=== PATIENT | male | born 2000 | race African-American/Black ===

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

== ENCOUNTER 2018-01-27 09:17 | Inpatient (IN) | payer OTHER ==
[~2018-01-27] VITALS: Ht 175.3 cm; Wt 107.5 kg
[2018-01-27] VITALS (12 sets, daily range): BP systolic 124–156; BP diastolic 70–93
[~2018-01-27 09:17] MED LIST: CULTURELLE1 EACH ORAL; DOCUSATE SODIU100 M2 ORAL; HYDROCODON-ACE1 EA13 ORAL; KEFLEX500 MG ORAL; SCOPOLAMINE1 EACH TD; VIMPAT200 MG PO; VITAMIN D1000 UNI1 ORAL
[2018-01-27] MEDS ORDERED: Sterile Water Irrig 1000ml IRRIG ONE (10:18)
[2018-01-27] MEDS ORDERED: Ketorolac 30mg Inj ONE ×2 (10:18→11:58)
[2018-01-27] MEDS ORDERED: LR 1000ml ONE (10:18)
[2018-01-27] MEDS ORDERED: NS Irrig 1000ml ONE (10:18)
[2018-01-27] MEDS ORDERED: EPINEPHrine 1mg/1ml Amp ONE (10:36)
[2018-01-27] MEDS ORDERED: NeoSporin Gu Irrig 1ml Amp IRRIG ONE ×2 (10:37→10:38)
[2018-01-27] MEDS ORDERED: Bacitracin 50000 Units Vial ONE ×2 (10:37→10:38)
[2018-01-27] MEDS ORDERED: Lidocaine 1% 10mg/ml/Epi 0.005mg/ml 30ml vial INJ ONE (10:37)
[2018-01-27] MEDS ORDERED: fentaNYL 100 mcg/2 mL IV ONE (10:40)
[2018-01-27] MEDS ORDERED: Midazolam 2mg/2ml Inj ONE (10:40)
[2018-01-27] MEDS ORDERED: Lidocaine 1% MPF 10mg/ml 5ml ONE (10:41)
[2018-01-27] MEDS ORDERED: Propofol 200mg/20ml IV ONE (10:41)
[2018-01-27] MEDS ORDERED: PCA Education Pamphlet MISC ONE ×2 (10:45→13:30)
[2018-01-27] MEDS ORDERED: Rate Change PCA 1 Each MISC PRN ×2 (10:45→13:30)
[2018-01-27] MEDS ORDERED: Zolpidem 5mg tab ORAL PRN ×2 (10:45→13:15)
[2018-01-27] MEDS ORDERED: PCA HYDROmorphone 1mg/ml 30 ML IV PRN (10:45)
--- NOTE | 2018-01-27 10:45 | Pre-Procedure Note/Attestation ---
Pre-Procedure Note/Attestation Complete Prior to Procedure Planned Procedure: right Procedure Narrative: Right axillary tissue debridement and flap elevation Attestation I attest that I discussed the nature of the procedure; its benefits; risks and complications; and alternatives (and the risks and benefits of such alternatives ), prior to the procedure, with the patient (or the patient's legal medical representative). I attest that, if there was a reasonable possibility of needing a blood transfusion, the patient (or the patient's legal medical representative) was given the [facility] standardized written summary, pursuant to the Eddie Howard Blood Safety Act ([place] Health and Safety Code # 1645, as amended). I attest that I re-evaluated the patient just prior to the surgery and that there has been no change in the patient's H&P, except as documented below: Сергей Riley MD Jan 27, 2018 10:45
[2018-01-27] MEDS ORDERED: Succinylcholine 20mg/ml 10ml vial ONE (10:59)
[2018-01-27] MEDS ORDERED: Zemuron 50mg/5ml Inj IV ONE (10:59)
[2018-01-27] MEDS ORDERED: LR 1000ml 1,000 ML IVLG SCH (11:55)
--- NOTE | 2018-01-27 11:55 | Anethesia Preoperative Eval ---
Anesthesia Pre-op PMH/ROS General Date of Evaluation: Jan 27, 2018 Time of Evaluation: 10:50 Anesthesiologist: Zohaib ASA Score: ASA 2 Mallampati Score Class I : Soft palate, uvula, fauces, pillars visible Class II: Soft palate, uvula, fauces visible Class III: Soft palate, base of uvula visible Class IV: Only hard plate visible Mallampati Classification: Class II Surgeon: Rosemary Diagnosis: Recurrent hydradenitis Surgical Procedure: Excision of R axillary hydradenitis Anesthesia History: none Family History: no anesthesia problems Allergies: Coded Allergies: CARBINOXAMINE (Verified Allergy, Severe, 02/06/17) TACHYCARDIA PSEUDOEPHEDRINE (Verified Allergy, Severe, 02/06/17) TACHYCARDIA Shrimp (Verified Allergy, Mild, 02/06/17) SKIN RASH Medications: see eMAR Patient NPO?: Yes NPO Date: Jan 26, 2018 NPO Time: 2100 Past Medical History Cardiovascular: Denies: HTN, CAD, [place], valve dz, arrhythmia, other Pulmonary: Denies: asthma, COPD, ROWAN, other Gastrointestinal/Genitourinary: Reports: GERD; Denies: CRI, ESRD, other Neurologic/Psychiatric: Reports: other - h/o sizers; Denies: dementia, CVA, depression/anxiety, TIA Endocrine: Denies: DM, hypothyroidism, steroids, other HEENT: Denies: cataract (L), cataract (R), glaucoma, KLAMATH (L), KLAMATH (R), other Hematology/Immune: Denies: anemia, DVT, bleeding disorder, other Musculoskeletal/Integumentary: Reports: other - Recurrent HS; Denies: OA, RA, DJD, DDD, edema Other: obesity PMH Narrative: as above PSxH Narrative: Excision of L axillary HS Anesthesia Pre-op Phys. Exam Physician Exam Last Vital Signs Date Time Temp Pulse Resp B/P (MAP) Pulse Ox O2 Delivery O2 Flow Rate FiO2 01/27/18 09:51 Room Air 01/27/18 09:50 98.7 71 18 146/72 (96) 100 Constitutional: NAD Neurologic: CN 2-12 intact Cardiovascular: RRR, no M/R/G Respiratory: CTA Gastrointestinal: S/NT/ND Airway Exam Mallampati Score: Class II MO: full Neck: flexible ROM: full Teeth: intact Dentures: no upper, no lower Anesthesia Pre-op A/P Labs see chart Risk Assessment & Plan Assessment: ASA 2 Plan: GA with ETT PONV prevention Status Change Before Surgery: No Pre-Antibiotics Drug: Ancef 2 gr. Given Within 1 Hr of Incision: Yes Time Given: 11:20 Eligio Penny MD Jan 27, 2018 11:55
[2018-01-27] MEDS ORDERED: Glycopyrrolate 0.2mg/ml 1ml Vial ONE (11:58)
[2018-01-27] MEDS ORDERED: Sodium Chloride 10ml vial INJ ONE (11:58)
[2018-01-27] MEDS ORDERED: Morphine Sulfate 10mg/ml Inj ONE (11:59)
[2018-01-27] MEDS ORDERED: fentaNYL 100 mcg/2 mL IV PRN (12:00)
[2018-01-27] MEDS ORDERED: Meperidine 50mg/ml Inj(FOR RIGORS ONLY) IV PRN (12:00)
[2018-01-27] MEDS ORDERED: DiphenhydrAMINE 50mg/ml Inj IVP PRN (12:00)
[2018-01-27] MEDS ORDERED: Ketorolac 30mg Inj IV PRN (12:00)
[2018-01-27] MEDS ORDERED: Midazolam 2mg/2ml Inj IVP PRN (12:00)
[2018-01-27] MEDS ORDERED: Metoclopramide 10mg/2ml Inj IVP PRN (12:00)
--- NOTE | 2018-01-27 12:37 | Operative Note - PDOC ---
Operative Note Operative Note Pre-op Diagnosis: Right axillary HS Post-op Diagnosis: same as pre-op Surgeon: Rosemary Seo Expert: Daniel Anesthesia: general Specimen: yes Complications: none Condition: stable Estimated Blood Loss: minimal Drains: none Implant(s) used?: No Сергей Riley MD Jan 27, 2018 12:37
--- NOTE | 2018-01-27 12:58 | Immediate Post-Op Evaluation ---
Immediate Post-Op Evalulation Immediate Post-Op Evalulation Procedure: Excision of R axillary hydradenitis Date of Evaluation: Jan 27, 2018 Time of Evaluation: 12:57 IV Fluids: 1100 Blood Products: none Estimated Blood Loss: 50 Urinary Output: none Blood Pressure Systolic: 146 Blood Pressure Diastolic: 72 Pulse Rate: 74 Respiratory Rate: 20 O2 Sat by Pulse Oximetry: 99 Temperature (Fahrenheit): 97.8 Pain Score (1-10): 1 Nausea: No Vomiting: No Complications none Patient Status: reacts, patent, extubated, none Hydration Status: adequate Eligio Penny MD Jan 27, 2018 12:58
[2018-01-27] MEDS ORDERED: Morphine Sulfate 2mg/ml Inj IVP PRN ×2 (13:15→13:30)
[2018-01-27] MEDS ORDERED: HYDROcodone/Acetamin 10/325 tab ORAL PRN (13:15)
[2018-01-27] MEDS ORDERED: Norco 5mg/325mg tab ORAL PRN (13:15)
[2018-01-27] MEDS ORDERED: PCA Morphine 1mg/ml 30 ML IV PRN (13:30)
[2018-01-27] MEDS ORDERED: Naloxone 0.4mg/ml Inj IVP PRN (13:30)
[2018-01-27] MEDS ORDERED: Morphine Sulfate 4mg/ml Inj (IV/IM USE ONLY) IV PRN (13:30)
--- NOTE | 2018-01-27 13:48 | History and Physical ---
History of Present Illness General Date patient seen: Jan 27, 2018 Time patient seen: 13:00 Reason for Hospitalization: abscess / hidradenitis suppurativa Present Illness HPI 17 yo M PMH of hidradenitis suppurativa, seizure disorder on vimpat, presented for pain, swelling and redness in the right axilla. Patient had similar prior episode on the left axillary region and had surgery done. Patient states his pain has worsened over time along with the swelling and erythema and occasionally there is drainage underneath the right axilla. Patient was evaluated for abscess and hidradenitis suppurativa and taken to the OR for debridement by Dr. Riley. Patient was evaluated post-operatively in good condition. Patient is under the influence of anesthesia however he is able to very that he has allergy to shrimp and takes Vimpat 300 mg PO BID for history of seizures. He admits to non radiating, sharp 10/10 pain under the right axilla where surgery was done. Otherwise patient denies nausea, vomiting, shortness of breath , fevers, chills or abd pain. ALL: shrimp PMH: seizure h/o, hidradenitis suppurativa PSH: debridement left axillary, radical excision and flap reconstruction FmHx: DM- father Soc Hx: denies tobacco, etoh and drug use Allergies: Coded Allergies: CARBINOXAMINE (Verified Allergy, Severe, 02/06/17) TACHYCARDIA PSEUDOEPHEDRINE (Verified Allergy, Severe, 02/06/17) TACHYCARDIA Shrimp (Verified Allergy, Mild, 02/06/17) SKIN RASH Medication History Scheduled Cholecalciferol (Vitamin D3)* (Vitamin D*), 4,000 UNITS ORAL DAILY, (Reported) Lacosamide (Vimpat), 300 MG PO BID, (Reported) Discontinued Medications Cephalexin* (Keflex*), 500 MG ORAL Q6H Discontinued Reason: Pt stopped taking med Docusate Sodium (Docusate Sodium), 100 MG ORAL TWICE A DAY Discontinued Reason: Pt stopped taking med Hydrocodone Bit/Acetaminophen 10-325* (Hydrocodon-Acetaminophn 10-325*), 1 EA ORAL Q4H PRN Discontinued Reason: Pt stopped taking med Lactobacillus Rhamnosus Gg* (Culturelle*), 1 TAB ORAL TWICE A DAY Discontinued Reason: Pt stopped taking med Scopolamine (Scopolamine), 1 EACH TD Q72H Discontinued Reason: Pt stopped taking med Patient History Healthcare decision maker DONAVAN BLANCO AND B[employer] GABRIEL - MOTHER &FATHER Resuscitation status Full Code Advanced Directive on File Family History Family History: FH: colon cancer Review of Systems All Other Systems: negative except mentioned in HPI ROS Narrative aside from HPI all other ROS are negative including more than 12 systems Physical Exam General Appearance: WD/WN, no apparent distress, alert, lethargic, other Lines, tubes and drains: peripheral HEENT: normocephalic, atraumatic, anicteric, mucous membranes moist, PERRL Neck: non-tender, normal alignment, supple, normal inspection, abnormal alignment Respiratory/Chest: normal breath sounds, no respiratory distress, no accessory muscle use, respiratory distress, other - left axillay surgical scar well healed , right axilla is badanged post op with no exudates or active drainage, tender to minimal palpation around surrounding tissues Breasts: no masses Cardiovascular/Chest: normal peripheral pulses, normal rate, regular rhythm, regularly irregular, no gallop/murmur, no JVD Abdomen: normal bowel sounds, non tender, soft, no organomegaly, no mass, abnormal bowel sounds Extremities: normal range of motion, non-tender, normal inspection, no calf tenderness, normal capillary refill, non-pitting, other - scd's in place Skin Exam: normal pigmentation, warm/dry 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 II-XII grossly normal, no motor/sensory deficits, oriented x 3 , responsive, normal mood/affect Last 24 Hour Vital Signs Date Time Temp Pulse Resp B/P (MAP) Pulse Ox O2 Delivery O2 Flow Rate FiO2 01/27/18 13:19 69 17 155/89 100 Nasal Cannula 3 01/27/18 13:10 66 15 134/85 100 Nasal Cannula 3 01/27/18 12:58 74 20 99 01/27/18 12:57 81 21 145/83 100 Simple Mask 6 01/27/18 12:52 74 24 132/79 100 Simple Mask 6 01/27/18 12:47 97.4 82 20 151/83 100 Simple Mask 6 01/27/18 09:51 Room Air 01/27/18 09:50 98.7 71 18 146/72 (96) 100 Height (Feet): 5 Height (Inches): 10.00 Weight (Pounds): 238 Medications Current Medications Medications (Trade) Dose Ordered Sig/Brandon Route PRN Reason Start Time Stop Time Status Last Admin Dose Admin Acetaminophen (Tylenol) 650 mg Q4H PRN ORAL FEVER 01/27/18 10:45 02/26/18 10:44 UNV Acetaminophen (Tylenol) 650 mg Q4H PRN ORAL Mild Pain (Pain Scale 1-3) 01/27/18 13:15 02/26/18 13:14 UNV Acetaminophen (Tylenol) 650 mg Q4H PRN ORAL fever 01/27/18 13:15 02/26/18 13:14 UNV Acetaminophen/ Hydrocodone Bitart ([place] 10/325) 1 tab Q4H PRN ORAL For Pain 6-7 01/27/18 13:15 02/03/18 13:14 UNV Acetaminophen/ Hydrocodone Bitart ([place] 5/325) 1 tab Q6H PRN ORAL Pain 4-5 01/27/18 13:15 02/03/18 13:14 UNV Cefazolin Sodium (Ancef) 1 gm Q8HR IM 01/27/18 14:00 02/03/18 13:59 UNV Dextrose (Dextrose 50%) 25 ml Q30M PRN IV Hypoglycemia 01/27/18 13:15 02/26/18 13:14 UNV Dextrose (Dextrose 50%) 50 ml Q30M PRN IV Hypoglycemia 01/27/18 13:15 02/26/18 13:14 UNV Diphenhydramine HCl (Benadryl) 25 mg Q15M PRN IVP Itching 01/27/18 12:00 UNV Docusate Sodium (Colace) 200 mg TWICE A DAY ORAL 01/27/18 18:00 02/26/18 17:59 UNV Fentanyl Citrate (Sublimaze 100 mcg/2 mL) 50 mcg Q10M PRN IV Moderate Pain (Pain Scale 4-6) 01/27/18 12:00 01/27/18 18:00 01/27/18 13:18 Heparin Sodium (Porcine) (Heparin 5000 units/ml) 5,000 units EVERY 12 HOURS SUBQ 01/27/18 21:00 02/26/18 20:59 UNV Heparin Sodium (Porcine) (Heparin 5000 units/ml) 5,000 units EVERY 8 HOURS SUBQ 01/27/18 14:00 02/26/18 13:59 UNV Hydromorphone HCl 30 ml @ 0 mls/hr Q24H PRN IV For Pain 01/27/18 10:45 01/29/18 10:44 01/27/18 13:21 Ketorolac Tromethamine (Toradol 30mg) 30 mg Q1H PRN IV Severe Breakthru Pain (>7) 01/27/18 12:00 01/27/18 18:00 Lactated Ringer's 1,000 ml @ 10 mls/hr Q24H IVLG 01/27/18 11:55 01/27/18 13:54 Meperidine HCl (Demerol) 25 mg Q15M PRN IV chills 01/27/18 12:00 01/27/18 18:00 Metoclopramide HCl (Reglan) 10 mg Q1H PRN IVP Nausea & Vomiting 01/27/18 12:00 01/27/18 18:00 Midazolam HCl (Versed 2mg/2ml vial) 1 mg Q15M PRN IVP For Anxiety 01/27/18 12:00 01/27/18 18:00 Miscellaneous Medication (WINDER FIXER Rate Change) 1 ea DAILY PRN MISC rate change 01/27/18 10:45 01/29/18 10:44 Miscellaneous Medication (WINDER FIXER shift volume) 1 ea Q12HR@0700,1900 MISC 01/27/18 19:00 01/29/18 18:59 Morphine Sulfate (Morphine Sulfate) 2 mg Q4H PRN IVP Breakthrough Pain 01/27/18 13:15 02/03/18 13:14 UNV Ondansetron HCl (Zofran) 4 mg Q6H PRN IVP Nausea & Vomiting 01/27/18 10:45 02/26/18 10:44 UNV Ondansetron HCl (Zofran) 4 mg Q6H PRN IVP Nausea & Vomiting 01/27/18 13:15 02/26/18 13:14 UNV Zolpidem Tartrate (Ambien) 5 mg DAILYPRN PRN ORAL Insomnia 01/27/18 10:45 02/03/18 10:44 UNV Zolpidem Tartrate (Ambien) 5 mg HSPRN PRN ORAL Insomnia 01/27/18 13:15 02/03/18 13:14 UNV Assessment/Plan Problem List: (1) Abscess ICD Codes: L02.91 - Cutaneous abscess, unspecified SNOMED: 773014103 (2) Hidradenitis axillaris ICD Codes: L73.2 - Hidradenitis suppurativa SNOMED: 849838227 (3) Seizure disorder ICD Codes: G40.909 - Epilepsy, unspecified, not intractable, without status epilepticus SNOMED: 497292850 (4) H/o CVA at at 2months of age Status: doing well Assessment/Plan Abscess under R Axilla s/p radical excision by Dr. Riley with no complications - given description of patients would will cover with IV abx - Surgery following - wound care per Dr. Riley recommendations - pain control with WINDER FIXER - bowel regimen Hidradenitis Suppurativa - see above Seizure D/O- controlled - continue home medication Vimpat 300 mg PO BID Hypovitaminosis D 3 (level 30) - borderline low level, supplement with 1,000 Units daily H/O CVA at age 2 months DVT proph - heparin Amparo status - Full Code I am happy to be involved in patient's care and appreciate Dr. Riley's fajardo management and surgical intervention. We will monitor patiently closely and address all concerns. I have spent 70 minutes regarding patients care, counseling and coordination of care. Joanne Melissa DO Jan 27, 2018 13:48
[2018-01-27] MEDS: Heparin 5000 units/ml inj SUBQ SCH ×2 (14:48→22:54)
[2018-01-27] MEDS ORDERED: Vitamin D 1000 IU Tab ORAL SCH (16:00)
[2018-01-27] MEDS: Docusate 100mg cap ORAL SCH (17:20)
--- NOTE | 2018-01-27 17:30 | Operative Note - Dictated ---
DATE OF OPERATION: 01/27/2018 PREOPERATIVE DIAGNOSIS: Right axillary hidradenitis advanced stage III. POSTOPERATIVE DIAGNOSIS: Right axillary hidradenitis advanced stage III. PROCEDURES: 1. Radical excision of right axillary hidradenitis. 2. Elevation of the right-sided lateral chest wall flap for closure of right axillary wound flap measurements were 13 x 8 cm. 3. Elevation of a right anterior chest wall flap for staged closure of right axillary wound flap measurements were 5 x 15 cm. 4. Elevation of a secondary superior axillary flap for closure of right axillary wound measurements are 5 x 8 cm. SURGEON: Сергей Riley M.D. CRAB PICKER: Ulises Sanchez M.D. ANESTHESIA: General. COMPLICATIONS: None. DRAINS: None. DISPOSITION: Stable to the recovery room. SPECIMEN: Included right axillary tissue, contiguous specimen measuring 5 x 15. INDICATIONS FOR SURGERY: This is a well known patient of mine, who is 17 years old now who last year underwent radical excision of left axillary hidradenitis with flap reconstruction and has done very well. Unfortunately since that time he had developed hidradenitis in his right axilla which has not responded to medical management and he presents now for definitive excision and reconstruction. He understands the risks and benefits of surgery and agrees to proceed. DETAILS OF THE OPERATION: The patient was brought to the operating room and laid in the supine position on the operating room table. His right axilla was prepped and draped in a sterile and usual fashion. We first began by marking out the area of disease using a blue marking pen. This was a pattern that resembled number 8 and the measurements were approximately 15 cm at its longest length and approximately 5 cm at its widest. So once the measurements were made, a #15 blade was then used to make the skin incision. Electrocautery was then used to carry down the incision all way down to the level of the axillary fascia. We noted the deep tracking of the tissue and agents bearing tissue was removed entirely leaving the axilla free of any disease. The wound that resulted however was quite large measuring 15 x 15 cm and was not amenable to primary closure. As such, multiple flaps had to be elevated. We first began by elevating the right lateral chest wall flap based off of the perforators of the thoracodorsal artery. A U-shaped type incision was designed and a #15 blade was then used to make the incision. Dissection was carried down all the way to the level of the latissimus muscle fascia. The flap was elevated with perforators preserve to the flap. It was noted to be well perfused as there was bleeding at the edges of the flap and the flap brought into the defect it was noted that there was still a large area that was not covered despite the presence of the flap. As such an anterior chest wall flap based off of perforators of the thoracoacromial artery were elevated with dissection carried above the pectoralis muscle fascia. The flap was fully mobilized and measured 15 x 5 cm. With the addition of this flap combined with the lateral chest wall flap, we were able to close approximately 80% of the wound however the remaining 20% was then closed by elevating a right axillary flap over the deltoid region to allow for full mobilization of the tissue, this measured approximately 8 x 5 cm with perforators of the axillary artery perfusing this flap. With this flap fully mobilized, we were able to completely get full soft tissue coverage of the wound. Maria E were then used tentatively to close all the flaps to bring the wounds together. Once this was confirmed to be of adequate soft tissue coverage, the maria e were released. Hemostasis was achieved. Given the fact that this was an infected case, the plan was not to perform definitive flap inset at this time. The patient will be brought back to the operating room in 48 hours for definitive flap inset. In the meantime, he will undergo IV antibiotic administration with wet-to-dry dressing changes until that time. The patient tolerated the procedure well. There was no complications. All needle and sponge counts were correct at the end of the case. Сергей Riley M.D. DR: Akua JOB#: [id number] CC: EROS
[2018-01-27] MEDS: ceFAZolin 1gm in D5W 55ml IVPB SCH (18:52)
[2018-01-27] MEDS ORDERED: PCA shift volume MISC SCH (19:00)
[2018-01-27] MEDS: PCA shift volume MISC SCH (19:00)
[2018-01-27] MEDS ORDERED: Heparin 5000 units/ml inj SUBQ SCH (21:00)
[2018-01-27] MEDS: Lacosamide 100 MG TABLET ORAL SCH (21:37)
[2018-01-28 00:04] VITALS: BP 132/65
[2018-01-28 04:48] VITALS: BP 124/70
[2018-01-28 06:20] LABS: HEMATOCRIT 37.2 % (42.0-52.0); HEMOGLOBIN 12.5 G/DL (14.2-18.0); LYMPHOCYTES % (AUTO) 26.6 % (20.0-45.0); MEAN CORPUSCULAR VOLUME 84 FL (80-99); NEUTROPHILS % (AUTO) 63.4 % (45.0-75.0); PLATELET COUNT 249 K/UL (150-450); RED CELL DISTRIBUTION WIDTH 11.3 % (11.6-14.8); WHITE BLOOD COUNT 10.4 K/UL (4.8-10.8)
[2018-01-28] MEDS: ceFAZolin 1gm in D5W 55ml IVPB SCH ×3 (06:48→21:14)
[2018-01-28] MEDS: Heparin 5000 units/ml inj SUBQ SCH ×3 (06:49→21:15)
[2018-01-28 06:56] LABS: ALANINE AMINOTRANSFERASE 18 U/L (12-78); ALBUMIN 2.9 G/DL (3.4-5.0); ALBUMIN/GLOBULIN RATIO 0.6 (1.0-2.7); ALKALINE PHOSPHATASE 83 U/L (46-116); ANION GAP 6 mmol/L (5-15); ASPARTATE AMINO TRANSFERASE 16 U/L (15-37); BILIRUBIN,TOTAL 0.4 MG/DL (0.2-1.0); BLOOD UREA NITROGEN 10 mg/dL (7-18); CALCIUM 8.6 MG/DL (8.5-10.1); CARBON DIOXIDE 29 MMOL/L (21-32); CHLORIDE 102 MMOL/L (98-107); CREATININE 1.1 MG/DL (0.55-1.30); POTASSIUM 3.9 MMOL/L (3.5-5.1); SODIUM 137 MMOL/L (136-145)
[2018-01-28] MEDS: PCA shift volume MISC SCH ×2 (07:07→19:00)
[2018-01-28 08:00] VITALS: BP 129/76
--- NOTE | 2018-01-28 08:15 | General Progress Note ---
Progress Note Progress Note Pt seen and examined. POD# 1 from right axillary debridement and flap elevation. Doing well and dressings CDI Plan for OR in AM for closure of wounds. MD Rosemary Teran Amir MD Jan 28, 2018 08:15
[2018-01-28] MEDS ORDERED: NS Irrig 1000ml ONE (09:00)
[2018-01-28] MEDS ORDERED: LR 1000ml ONE (09:00)
[2018-01-28] MEDS ORDERED: Ketorolac 30mg Inj ONE (09:00)
[2018-01-28] MEDS ORDERED: Sterile Water Irrig 1000ml IRRIG ONE (09:00)
[2018-01-28] MEDS: Lacosamide 100 MG TABLET ORAL SCH ×2 (09:06→21:14)
[2018-01-28] MEDS: Docusate 100mg cap ORAL SCH ×2 (09:06→18:15)
[2018-01-28] MEDS: Vitamin D 1000 IU Tab ORAL SCH (09:06)
--- NOTE | 2018-01-28 09:43 | General Progress Note ---
Assessment/Plan Problem List: (1) Abscess ICD Codes: L02.91 - Cutaneous abscess, unspecified SNOMED: 085498246 (2) Hidradenitis axillaris ICD Codes: L73.2 - Hidradenitis suppurativa SNOMED: 741560746 (3) Seizure disorder ICD Codes: G40.909 - Epilepsy, unspecified, not intractable, without status epilepticus SNOMED: 086178831 (4) H/o CVA at at 2months of age (5) Anemia ICD Codes: D64.9 - Anemia, unspecified SNOMED: 693625275 (6) Hypoalbuminemia ICD Codes: E88.09 - Other disorders of plasma-protein metabolism, not elsewhere classified SNOMED: 155984373 Assessment/Plan Abscess under R Axilla s/p radical excision by Dr. Riley with no complications - given description of patients would will cover with IV abx - Surgery following - wound care per Dr. Riley recommendations, wet to dry dressing - O for closure tomorrow, NPO after midnight tonight - pain control with STRUCTURAL STEEL IRONWORKER - bowel regimen Hidradenitis Suppurativa - see above Normocytic anemia - f/u iron panel, peripheral smear, b12 and folate - monitor, no transfusion needed unless hgb < 7 Hypoalbuminemia (2.9) - f/u urine analysis to r/o proteinuria - check prealbumin Seizure D/O- controlled - continue home medication Vimpat 300 mg PO BID Hypovitaminosis D 3 (level 30) - borderline low level, supplement with 1,000 Units daily H/O CVA at age 2 months DVT proph - heparin Amparo status - Full Code We will monitor patiently closely and address all concerns. Please do not hesitate to contact me regarding any patient or family concerns. we are available 24 hours a day, please call [phone]. Thank you. I have spent 70 minutes regarding patients care, counseling and coordination of care. Subjective Date patient seen: Jan 28, 2018 Time patient seen: 09:00 ROS Limited/Unobtainable: No Allergies: Coded Allergies: CARBINOXAMINE (Verified Allergy, Severe, 02/06/17) TACHYCARDIA PSEUDOEPHEDRINE (Verified Allergy, Severe, 02/06/17) TACHYCARDIA Shrimp (Verified Allergy, Mild, 02/06/17) SKIN RASH Subjective Patient states he is doing well and using the STRUCTURAL STEEL IRONWORKER pump for pain control. Sleep was "on and off" last night". Patient is eating with no nausea or vomiting. Patient denies fevers, chills, shortness of breath, chest pain. Objective Last 24 Hour Vital Signs Date Time Temp Pulse Resp B/P (MAP) Pulse Ox O2 Delivery O2 Flow Rate FiO2 01/28/18 09:00 Room Air 01/28/18 08:00 18 01/28/18 08:00 98.0 60 18 129/76 (93) 99 01/28/18 05:04 98.2 01/28/18 04:48 98.2 67 18 124/70 (88) 98 01/28/18 04:10 19 01/28/18 00:41 19 01/28/18 00:04 98.4 72 18 132/65 (87) 97 01/27/18 21:30 Room Air 01/27/18 20:58 19 01/27/18 20:12 98 Room Air 01/27/18 19:59 98.2 67 18 124/70 (88) 98 01/27/18 16:56 Room Air 01/27/18 16:00 98.2 59 20 127/70 (89) 99 01/27/18 16:00 19 01/27/18 14:50 Nasal Cannula 3.0 32 01/27/18 14:50 98 Nasal Cannula 3.0 32 01/27/18 14:35 98.1 62 20 142/77 (98) 98 01/27/18 14:15 Room Air 01/27/18 14:05 98.2 63 21 130/80 (97) 99 01/27/18 14:05 21 01/27/18 13:50 98.6 01/27/18 13:50 19 01/27/18 13:48 98.6 01/27/18 13:40 98.6 62 19 143/82 100 Nasal Cannula 3 01/27/18 13:35 18 01/27/18 13:30 63 17 156/93 100 Nasal Cannula 3 01/27/18 13:21 20 01/27/18 13:19 69 17 155/89 100 Nasal Cannula 3 01/27/18 13:10 66 15 134/85 100 Nasal Cannula 3 01/27/18 12:58 74 20 99 01/27/18 12:57 81 21 145/83 100 Simple Mask 6 01/27/18 12:52 74 24 132/79 100 Simple Mask 6 01/27/18 12:47 97.4 82 20 151/83 100 Simple Mask 6 01/27/18 09:51 Room Air 01/27/18 09:50 98.7 71 18 146/72 (96) 100 Intake and Output 01/27/18 01/28/18 19:00 07:00 Intake Total 1561.667 ml 605 ml Output Total 50 ml 450 ml Balance 1511.667 ml 155 ml Intake Oral 300 ml IV Total 1261.667 ml 605 ml Output Urine Total 450 ml Estimated Blood Loss 50 ml # Voids 1 Laboratory Tests 01/28/18 05:42: White Blood Count 10.4, Red Blood Count 4.40L, Hemoglobin 12.5L, Hematocrit 37.2L, Mean Corpuscular Volume 84, Mean Corpuscular Hemoglobin 28.5, Mean Corpuscular Hemoglobin Concent 33.7, Red Cell Distribution Width 11.3L, Platelet Count 249, Mean Platelet Volume 7.1, Neutrophils (%) (Auto) 63.4, Lymphocytes (%) (Auto) 26.6, Monocytes (%) (Auto) 8.0, Eosinophils (%) (Auto) 1.0, Basophils (%) (Auto) 1.0, Sodium Level 137, Potassium Level 3.9, Chloride Level 102, Carbon Dioxide Level 29, Anion Gap 6, Blood Urea Nitrogen 10, Creatinine 1.1, Estimat Glomerular Filtration Rate > 60, Glucose Level 95, Calcium Level 8.6, Magnesium Level 1.6L, Total Bilirubin 0.4, Aspartate Amino Transf (AST/SGOT) 16, Alanine Aminotransferase (ALT/SGPT) 18, Alkaline Phosphatase 83, Total Protein 7.4, Albumin 2.9L, Globulin 4.5, Albumin/Globulin Ratio 0.6L 01/28/18 05:52: Iron Level [Pending], Unsaturated Iron Binding [Pending], Vitamin B12 Level [ Pending], Folate [Pending] Height (Feet): 5 Height (Inches): 10.00 Weight (Pounds): 238 General Appearance: WD/WN, no apparent distress, alert EENT: PERRL/EOMI, normal ENT inspection Neck: non-tender, normal alignment, supple, normal inspection Cardiovascular: normal peripheral pulses, normal rate, regular rhythm, regularly irregular, no gallop/murmur, no JVD Respiratory/Chest: lungs clear, normal breath sounds, no respiratory distress, no accessory muscle use, other - right axillary bandages, C/D/I, minimal tenderness surrounding tissues, minimal edema Abdomen: normal bowel sounds, non tender, soft, no organomegaly, no mass Extremities: normal range of motion, non-tender, normal inspection Edema: no edema noted Arm (L), no edema noted Arm (R), no edema noted Leg (L), no edema noted Leg (R), no edema noted Pedal (L), no edema noted Pedal (R), no edema noted Generalized Neurologic: 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
[2018-01-28 10:05] LABS: % IRON SATURATION 23 % (15-50); IRON 54 ug/dL (50-175); TOTAL IRON BINDING CAPACITY 239 ug/dL (250-450)
[2018-01-28 11:03] LABS: APPEARANCE,URINE CLEAR; BILIRUBIN, URINE NEGATIVE (NEGATIVE); COLOR,URINE PALE YELLOW; GLUCOSE, URINE (UA) NEGATIVE (NEGATIVE); KETONES,URINE NEGATIVE (NEGATIVE); LEUKOCYTE ESTERASE ,URINE NEGATIVE (NEGATIVE); NITRITE,URINE NEGATIVE (NEGATIVE); PH,URINE 6 (4.5-8.0); PROTEIN,URINE NEGATIVE (NEGATIVE); UROBILINOGEN,URINE NORMAL MG/DL (0.0-1.0)
[2018-01-28 12:00] VITALS: BP 148/97
[2018-01-28 16:00] VITALS: BP 140/77
--- NOTE | 2018-01-28 16:05 | 48 Hour Post Anesthesia Eval ---
Post Anesthesia Evaluation Procedure: Excision of R axillary hydradenitis Date of Evaluation: Jan 28, 2018 Time of Evaluation: 16:03 Blood Pressure Systolic: 128 0: 72 Pulse Rate: 76 Respiratory Rate: 20 Temperature (Fahrenheit): 97.6 O2 Sat by Pulse Oximetry: 98 Airway: patent Nausea: No Vomiting: No Pain Intensity: 3 Hydration Status: adequate Cardiopulmonary Status: stable Mental Status/LOC: patient returned to baseline Follow-up Care/Observations: n/a Post-Anesthesia Complications: none Follow-up care needed: N/A Eligio Penny MD Jan 28, 2018 16:05
[2018-01-28] MEDS ORDERED: Tubing IV Secondary IV ONE (17:14)
[2018-01-28 20:00] VITALS: BP 136/76
[2018-01-29] VITALS (16 sets, daily range): BP systolic 112–161; BP diastolic 57–92
[2018-01-29] MEDS: Heparin 5000 units/ml inj SUBQ SCH ×2 (05:22→21:19)
[2018-01-29] MEDS: ceFAZolin 1gm in D5W 55ml IVPB SCH ×3 (05:47→21:16)
[2018-01-29 06:33] LABS: EOSINOPHILS % (AUTO) 1.1 % (0.0-3.0); HEMATOCRIT 36.2 % (42.0-52.0); HEMOGLOBIN 11.9 G/DL (14.2-18.0); LYMPHOCYTES % (AUTO) 27.6 % (20.0-45.0); MEAN CORPUSCULAR VOLUME 84 FL (80-99); NEUTROPHILS % (AUTO) 61.4 % (45.0-75.0); PLATELET COUNT 256 K/UL (150-450); RED BLOOD COUNT 4.31 M/UL (4.70-6.10); WHITE BLOOD COUNT 9.9 K/UL (4.8-10.8)
[2018-01-29 06:34] LABS: PHOSPHORUS 3.8 MG/DL (2.5-4.9)
[2018-01-29] MEDS: PCA shift volume MISC SCH ×2 (07:21→19:13)
[2018-01-29] MEDS: Lacosamide 100 MG TABLET ORAL SCH ×2 (07:42→21:16)
[2018-01-29] MEDS ORDERED: Lidocaine 1% 10mg/ml/Epi 0.005mg/ml 30ml vial INJ ONE (08:28)
[2018-01-29] MEDS ORDERED: NeoSporin Gu Irrig 1ml Amp IRRIG ONE (08:29)
[2018-01-29] MEDS ORDERED: Bacitracin 50000 Units Vial ONE (08:29)
--- NOTE | 2018-01-29 08:36 | Pre-Procedure Note/Attestation ---
Pre-Procedure Note/Attestation Complete Prior to Procedure Planned Procedure: right Procedure Narrative: Flap closure of right axillary wound Indications for Procedure Pre-Operative Diagnosis: Right axillary HS Attestation I attest that I discussed the nature of the procedure; its benefits; risks and complications; and alternatives (and the risks and benefits of such alternatives ), prior to the procedure, with the patient (or the patient's legal artist's representative). I attest that, if there was a reasonable possibility of needing a blood transfusion, the patient (or the patient's legal artist's representative) was given the [facility] standardized written summary, pursuant to the Eddie Sunsites Blood Safety Act ([place] Health and Safety Code # 1645, as amended). I attest that I re-evaluated the patient just prior to the surgery and that there has been no change in the patient's H&P, except as documented below: Сергей Riley MD Jan 29, 2018 08:36
[2018-01-29] MEDS ORDERED: Zolpidem 5mg tab ORAL PRN (08:45)
[2018-01-29] MEDS: Docusate 100mg cap ORAL SCH ×2 (08:45→17:31)
[2018-01-29] MEDS ORDERED: Rate Change PCA 1 Each MISC PRN ×2 (08:45→11:15)
[2018-01-29] MEDS: Vitamin D 1000 IU Tab ORAL SCH (08:45)
[2018-01-29] MEDS ORDERED: PCA Education Pamphlet MISC ONE ×2 (08:45→11:15)
[2018-01-29] MEDS ORDERED: PCA HYDROmorphone 1mg/ml 30 ML IV PRN ×2 (08:45→11:15)
[2018-01-29] MEDS ORDERED: Morphine Sulfate 10mg/ml Inj ONE (08:57)
[2018-01-29] MEDS ORDERED: fentaNYL 100 mcg/2 mL IV ONE (08:57)
[2018-01-29] MEDS ORDERED: Midazolam 2mg/2ml Inj ONE (08:57)
[2018-01-29] MEDS ORDERED: Propofol 200mg/20ml IV ONE (08:58)
[2018-01-29] MEDS ORDERED: Neostigmine 1mg/ml 10ml Inj ONE (08:58)
[2018-01-29] MEDS ORDERED: Glycopyrrolate 0.2mg/ml 1ml Vial ONE (08:58)
[2018-01-29] MEDS ORDERED: Lidocaine 1% Plain 30 ml INJ ONE (08:59)
[2018-01-29] MEDS ORDERED: Docusate 100mg cap ORAL SCH (09:00)
[2018-01-29] MEDS ORDERED: Heparin 5000 units/ml inj SUBQ SCH (09:00)
[2018-01-29] MEDS ORDERED: Zemuron 50mg/5ml Inj IV ONE (09:02)
[2018-01-29] MEDS ORDERED: Succinylcholine 20mg/ml 10ml vial ONE (09:02)
--- NOTE | 2018-01-29 09:56 | Anethesia Preoperative Eval ---
Anesthesia Pre-op PMH/ROS General Date of Evaluation: Jan 29, 2018 Time of Evaluation: 08:50 Anesthesiologist: Zohaib ASA Score: ASA 2 Mallampati Score Class I : Soft palate, uvula, fauces, pillars visible Class II: Soft palate, uvula, fauces visible Class III: Soft palate, base of uvula visible Class IV: Only hard plate visible Mallampati Classification: Class II Surgeon: Rosemary Diagnosis: Recurrent HS Surgical Procedure: Revision and closure of R axillary wound Anesthesia History: none Family History: no anesthesia problems Allergies: Coded Allergies: CARBINOXAMINE (Verified Allergy, Severe, 02/06/17) TACHYCARDIA PSEUDOEPHEDRINE (Verified Allergy, Severe, 02/06/17) TACHYCARDIA Shrimp (Verified Allergy, Mild, 02/06/17) SKIN RASH Patient NPO?: Yes NPO Date: Jan 29, 2018 NPO Time: 0000 Past Medical History Cardiovascular: Denies: HTN, CAD, MD, valve dz, arrhythmia, other Pulmonary: Denies: asthma, COPD, ROWAN, other Gastrointestinal/Genitourinary: Reports: GERD; Denies: CRI, ESRD, other Neurologic/Psychiatric: Reports: other - h/o seizers; Denies: dementia, CVA, depression/anxiety, TIA Endocrine: Denies: DM, hypothyroidism, steroids, other HEENT: Denies: cataract (L), cataract (R), glaucoma, [place] (L), [place] (R), other Hematology/Immune: Reports: anemia - mild; Denies: DVT, bleeding disorder, other Musculoskeletal/Integumentary: Denies: OA, RA, DJD, DDD, edema, other Other: obesity PMH Narrative: as above PSxH Narrative: Surgical treatment of HS Anesthesia Pre-op Phys. Exam Physician Exam Last Vital Signs Date Time Temp Pulse Resp B/P (MAP) Pulse Ox O2 Delivery O2 Flow Rate FiO2 01/29/18 08:20 Nasal Cannula 2.0 01/29/18 08:00 99.7 87 20 118/75 (89) 92 01/27/18 14:50 32 Constitutional: NAD Neurologic: CN 2-12 intact Cardiovascular: RRR, no M/R/G Respiratory: CTA Gastrointestinal: other - obesity Airway Exam Mallampati Score: Class II MO: full Neck: flexible ROM: full Teeth: intact Dentures: no upper, no lower Anesthesia Pre-op A/P Labs Hematology Test 01/29/18 05:25 White Blood Count 9.9 K/UL (4.8-10.8) Red Blood Count 4.31 M/UL (4.70-6.10) L Hemoglobin 11.9 G/DL (14.2-18.0) L Hematocrit 36.2 % (42.0-52.0) L Mean Corpuscular Volume 84 FL (80-99) Mean Corpuscular Hemoglobin 27.7 PG (27.0-31.0) Mean Corpuscular Hemoglobin Concent 33.0 G/DL (32.0-36.0) Red Cell Distribution Width 11.0 % (11.6-14.8) L Platelet Count 256 K/UL (150-450) Mean Platelet Volume 6.2 FL (6.5-10.1) L Neutrophils (%) (Auto) 61.4 % (45.0-75.0) Lymphocytes (%) (Auto) 27.6 % (20.0-45.0) Monocytes (%) (Auto) 9.0 % (1.0-10.0) Eosinophils (%) (Auto) 1.1 % (0.0-3.0) Basophils (%) (Auto) 1.0 % (0.0-2.0) Chemistry Test 01/29/18 05:25 Phosphorus Level 3.8 MG/DL (2.5-4.9) Magnesium Level 1.7 MG/DL (1.8-2.4) L Risk Assessment & Plan Assessment: ASA 2 Plan: GA with ETT Status Change Before Surgery: No Pre-Antibiotics Drug: Ancef 2gr. Given Within 1 Hr of Incision: Yes Time Given: 09:40 Eligio Penny MD Jan 29, 2018 09:56
[2018-01-29] MEDS ORDERED: LR 1000ml 1,000 ML IVLG SCH (09:57)
[2018-01-29] MEDS ORDERED: Ketorolac 30mg Inj IV PRN (10:00)
[2018-01-29] MEDS ORDERED: Midazolam 2mg/2ml Inj IVP PRN (10:00)
[2018-01-29] MEDS ORDERED: DiphenhydrAMINE 50mg/ml Inj IVP PRN (10:00)
[2018-01-29] MEDS ORDERED: fentaNYL 100 mcg/2 mL IV PRN (10:00)
[2018-01-29] MEDS ORDERED: Meperidine 50mg/ml Inj(FOR RIGORS ONLY) IV PRN (10:00)
[2018-01-29] MEDS ORDERED: Metoclopramide 10mg/2ml Inj IVP PRN (10:00)
--- NOTE | 2018-01-29 11:02 | Operative Note - PDOC ---
Operative Note Operative Note Pre-op Diagnosis: Right axillary HS Procedure: Right axillary wound flap closure Post-op Diagnosis: same as pre-op Surgeon: Rosemary Web Site Manager: Daniel Anesthesia: general Specimen: yes Complications: none Condition: stable Estimated Blood Loss: minimal Drains: SHANAE Implant(s) used?: No Сергей Riley MD Jan 29, 2018 11:02
--- NOTE | 2018-01-29 11:29 | Immediate Post-Op Evaluation ---
Immediate Post-Op Evalulation Immediate Post-Op Evalulation Procedure: Revision and closure of R axillary wound Date of Evaluation: Jan 29, 2018 Time of Evaluation: 11:28 IV Fluids: 1000 Blood Products: none Estimated Blood Loss: 50 Urinary Output: n/a Blood Pressure Systolic: 146 Blood Pressure Diastolic: 72 Pulse Rate: 88 Respiratory Rate: 20 O2 Sat by Pulse Oximetry: 99 Temperature (Fahrenheit): 97.8 Pain Score (1-10): 2 Nausea: No Vomiting: No Complications none Patient Status: reacts, patent, extubated, none Hydration Status: adequate Eligio Penny MD Jan 29, 2018 11:29
--- NOTE | 2018-01-29 13:56 | General Progress Note ---
Assessment/Plan Problem List: (1) Abscess ICD Codes: L02.91 - Cutaneous abscess, unspecified SNOMED: 468570291 (2) Hidradenitis axillaris ICD Codes: L73.2 - Hidradenitis suppurativa SNOMED: 803032886 (3) Seizure disorder ICD Codes: G40.909 - Epilepsy, unspecified, not intractable, without status epilepticus SNOMED: 409132124 (4) H/o CVA at at 2months of age (5) Anemia ICD Codes: D64.9 - Anemia, unspecified SNOMED: 287432010 (6) Hypoalbuminemia ICD Codes: E88.09 - Other disorders of plasma-protein metabolism, not elsewhere classified SNOMED: 188620927 Assessment/Plan Abscess under R Axilla s/p radical excision by Dr. Riley on 01/27 and Flap closure on 01/29- no complicatios - given description of patients would will cover with IV abx - Surgery following - wound care per Dr. Riley recommendations - ok for diet - pain control with MAJOR LEAGUE BASEBALL UMPIRE - bowel regimen - pathology from 01/27 is consistent with HS Hidradenitis Suppurativa - see above Normocytic anemia - f/u iron panel, peripheral smear, b12 and folate-> B12 and folate WNL, no iron deficiency, f/u ferritin - monitor, no transfusion needed unless hgb < 7 Hypoalbuminemia (2.9) - f/u urine analysis to r/o proteinuria -> no proteinuria - check prealbumin Seizure D/O- controlled - continue home medication Vimpat 300 mg PO BID Hypovitaminosis D 3 (level 30) - borderline low level, supplement with 1,000 Units daily H/O CVA at age 2 months DVT proph - heparin Amparo status - Full Code We will monitor patiently closely and address all concerns. Please do not hesitate to contact me regarding any patient or family concerns. we are available 24 hours a day, please call [phone]. Thank you. I have spent 70 minutes regarding patients care, counseling and coordination of care. Subjective Date patient seen: Jan 29, 2018 Time patient seen: 13:00 ROS Limited/Unobtainable: No Allergies: Coded Allergies: CARBINOXAMINE (Verified Allergy, Severe, 02/06/17) TACHYCARDIA PSEUDOEPHEDRINE (Verified Allergy, Severe, 02/06/17) TACHYCARDIA Shrimp (Verified Allergy, Mild, 02/06/17) SKIN RASH Subjective Patient went for surgery this AM no acute events overnight. His only complains is pain in which he is using his MAJOR LEAGUE BASEBALL UMPIRE. Patient denies nausea, vomiting, constipation, headache. Objective Last 24 Hour Vital Signs Date Time Temp Pulse Resp B/P (MAP) Pulse Ox O2 Delivery O2 Flow Rate FiO2 01/29/18 12:45 15 01/29/18 12:40 18 01/29/18 12:40 99.5 85 20 112/64 (80) 96 01/29/18 12:30 18 01/29/18 12:29 98.0 01/29/18 12:26 98.0 69 24 127/66 100 Nasal Cannula 3 01/29/18 12:15 13 01/29/18 12:15 65 24 161/66 100 Nasal Cannula 3 01/29/18 12:00 70 24 153/79 100 Nasal Cannula 3 01/29/18 11:59 15 01/29/18 11:48 69 24 156/85 100 Nasal Cannula 3 01/29/18 11:40 69 16 136/92 100 Simple Mask 6 01/29/18 11:33 76 25 141/58 100 Simple Mask 6 01/29/18 11:29 88 20 99 01/29/18 11:28 78 25 141/68 100 Simple Mask 6 01/29/18 11:23 97.8 94 20 146/86 100 Simple Mask 6 01/29/18 08:20 Nasal Cannula 2.0 01/29/18 08:00 99.7 87 20 118/75 (89) 92 01/29/18 08:00 20 01/29/18 04:00 19 01/29/18 04:00 99.0 65 18 120/60 (80) 99 01/29/18 00:00 19 01/29/18 00:00 99.4 62 19 115/57 (76) 98 01/28/18 21:00 Nasal Cannula 2.0 01/28/18 20:00 20 01/28/18 20:00 98.3 68 20 136/76 (96) 100 01/28/18 16:05 76 20 98 01/28/18 16:00 98.4 65 20 140/77 (98) 98 01/28/18 16:00 20 Intake and Output 01/28/18 01/29/18 19:00 07:00 Intake Total 1360 ml 840 ml Balance 1360 ml 840 ml Intake Oral 600 ml 240 ml IV Total 760 ml 600 ml # Voids 5 1 Laboratory Tests 01/29/18 05:25: White Blood Count 9.9, Red Blood Count 4.31L, Hemoglobin 11.9L, Hematocrit 36.2L , Mean Corpuscular Volume 84, Mean Corpuscular Hemoglobin 27.7, Mean Corpuscular Hemoglobin Concent 33.0, Red Cell Distribution Width 11.0L, Platelet Count 256, Mean Platelet Volume 6.2L, Neutrophils (%) (Auto) 61.4, Lymphocytes (%) (Auto) 27.6, Monocytes (%) (Auto) 9.0, Eosinophils (%) (Auto) 1.1, Basophils (%) (Auto) 1.0, Phosphorus Level 3.8, Magnesium Level 1.7L Height (Feet): 5 Height (Inches): 9.00 Weight (Pounds): 237 General Appearance: WD/WN, no apparent distress, lethargic EENT: PERRL/EOMI, normal ENT inspection Neck: non-tender, normal alignment, supple, normal inspection Cardiovascular: normal peripheral pulses, normal rate, regular rhythm, no JVD Respiratory/Chest: lungs clear, normal breath sounds, other - right axillary wound C/D/I with SHANAE drain in place and about 50 cc of sanginous fluid Abdomen: normal bowel sounds, non tender, soft, no organomegaly, no mass Extremities: normal range of motion, non-tender Edema: no edema noted Arm (L), no edema noted Arm (R), no edema noted Leg (L), no edema noted Leg (R), no edema noted Pedal (L), no edema noted Pedal (R), no edema noted Generalized Neurologic: corrugator operator helper II-XII grossly normal, no motor/sensory deficits, oriented x 3 , responsive, normal mood/affect Skin: normal pigmentation, warm/dry Joanne Melissa DO Jan 29, 2018 13:56
--- NOTE | 2018-01-29 15:27 | 48 Hour Post Anesthesia Eval ---
Post Anesthesia Evaluation Procedure: Revision and closure of R axillary wound Date of Evaluation: Jan 29, 2018 Time of Evaluation: 15:27 Blood Pressure Systolic: 112 0: 64 Pulse Rate: 85 Respiratory Rate: 18 Temperature (Fahrenheit): 99.5 O2 Sat by Pulse Oximetry: 96 Airway: patent Nausea: No Vomiting: No Pain Intensity: 2 Hydration Status: adequate Cardiopulmonary Status: Stable Mental Status/LOC: patient returned to baseline Follow-up Care/Observations: 0 Post-Anesthesia Complications: 0 Follow-up care needed: N/A Reymundo Fregoso MD Jan 29, 2018 15:27
[2018-01-29] MEDS: Metoclopramide 10mg/2ml Inj IVP PRN (17:31)
--- NOTE | 2018-01-29 18:16 | Operative Note - Dictated ---
DATE OF OPERATION: 01/29/2018 PREOPERATIVE DIAGNOSIS: Open right axillary wound. POSTOPERATIVE DIAGNOSIS: Open right axillary wound. PROCEDURES: 1. Preparation of right axillary wound for flap transfer and closure. 2. Reelevation of lateral chest wall thoracodorsal artery flap for closure of right axillary wound. 3. Reelevation of anterior chest wall flap for closure of right axillary wound. 4. Reelevation of axillary deltoid flap for closure of right axillary wound. SURGEON: Сергей Riley M.D. BOILER REPAIRMAN: Ulises Sanchez M.D. ANESTHESIA: General. COMPLICATIONS: None. DRAINS: Included a size 15 SHANAE. EBL: 50 mL. DISPOSITION: Stable to the recovery room. INDICATIONS FOR SURGERY: This is a 17-year-old male, status post radical excision of axillary hidradenitis two days ago, who has been undergoing local wound care with IV antibiotics and is now prepared for definitive flap transfer. The flaps had been previously elevated at the first operation and now the flaps were noted to be on exam to be fully viable and there was no evidence of ischemia and they were ready for transfer. The patient understood the risks and benefits of surgery and agreed to proceed. DETAILS OF THE OPERATION: The patient was brought to the operating room and laid in the supine position on the operating table. His right axilla and chest were prepped and draped in a sterile and usual fashion. The right axillary wound measured approximately 10 x 13 cm and was clearly not amenable to primary closure as was noted on the previous operation. As such, the flaps that had been previously elevated had to be reelevated. The wound base was debrided of some of the nonviable tissue and there was some evidence of new disease, which actually had sprouted up within the past 48 hours at the skin edges of the wound in particular on the superior edge of the lamina flap position, this area of new hidradenitis was excised. With this done, we proceeded to perform pulse lavage, irrigation, and then began by reelevating the anterior chest wall flap that had been based off of the thoracoacromial artery. This flap was elevated and brought into the defect along with reelevation of the lateral chest wall thoracodorsal artery flap based off of perforators of the thoracodorsal artery. With these two brought together, we were able to close the 80% of the wound as was done previously in the first operation where tailor tacking the wound closed. The 80% of the wound closure was accomplished by the lateral chest wall and the anterior chest wall reapproximation over a size 15 SHANAE The flaps were brought together using #0 and 2-0 Vicryl sutures and then the remaining 20% of the wound was closed by an inferior positioning of the axillary deltoid flap based off of perforators of the axillary artery and with the conglomeration of all three flaps, the wound was fully closed. All the flaps were inset using #0 and 2-0 Vicryl suture. Maria E were used to close the skin. Some of the point of high tension between the flaps were reapproximated with multiple interrupted 2-0 Prolene sutures. Bulky dressings were applied. The SHANAE drain was secured with a 3-0 nylon suture. The patient tolerated the procedure well and there were no complications. Сергей Riley M.D. DR: THERESE JOB#: [id number] CC:
[2018-01-29] MEDS ORDERED: PCA shift volume MISC SCH (19:00)
[2018-01-30] VITALS: BP 132/84
[2018-01-30 04:30] VITALS: BP 130/76
[2018-01-30] MEDS: ceFAZolin 1gm in D5W 55ml IVPB SCH (05:13)
[2018-01-30] MEDS: PCA shift volume MISC SCH ×2 (07:26→19:25)
[2018-01-30 08:00] VITALS: BP 133/80
[2018-01-30 08:37] LABS: BASOPHILS % (AUTO) 0.8 % (0.0-2.0); EOSINOPHILS % (AUTO) 0.8 % (0.0-3.0); HEMATOCRIT 36.1 % (42.0-52.0); HEMOGLOBIN 12.3 G/DL (14.2-18.0); LYMPHOCYTES % (AUTO) 16.2 % (20.0-45.0); MEAN CORPUSCULAR VOLUME 84 FL (80-99); MONOCYTES % (AUTO) 10.1 % (1.0-10.0); PLATELET COUNT 242 K/UL (150-450); RED BLOOD COUNT 4.31 M/UL (4.70-6.10); RED CELL DISTRIBUTION WIDTH 11.2 % (11.6-14.8); WHITE BLOOD COUNT 12.2 K/UL (4.8-10.8)
[2018-01-30] MEDS: Vitamin D 1000 IU Tab ORAL SCH (08:41)
[2018-01-30] MEDS: Lacosamide 100 MG TABLET ORAL SCH ×2 (08:41→20:39)
[2018-01-30] MEDS: Docusate 100mg cap ORAL SCH ×2 (08:42→17:51)
[2018-01-30] MEDS: Heparin 5000 units/ml inj SUBQ SCH ×2 (08:42→20:41)
[2018-01-30 09:00] LABS: ANION GAP 7 mmol/L (5-15); BLOOD UREA NITROGEN 7 mg/dL (7-18); CALCIUM 8.9 MG/DL (8.5-10.1); CARBON DIOXIDE 29 MMOL/L (21-32); CHLORIDE 99 MMOL/L (98-107); CREATININE 1.1 MG/DL (0.55-1.30); PHOSPHORUS 3.5 MG/DL (2.5-4.9); POTASSIUM 3.9 MMOL/L (3.5-5.1); SODIUM 135 MMOL/L (136-145)
--- NOTE | 2018-01-30 09:07 | Diagnostic Imaging Report ---
INDICATION: Cough COMPARISON: None FINDINGS: Single frontal view demonstrates slightly prominent heart size though this may be due to hypoventilatory examination. Hypoventilatory examination with compensatory compressive changes at the bases. No pleural effusions. The visualized osseous structures are within normal limits. IMPRESSION: Hypoventilatory examination, correlation can be obtained with full inspiration for further evaluation.
--- NOTE | 2018-01-30 10:21 | General Progress Note ---
Progress Note Progress Note Pt seen and examined. POD # 3 and 1. Doing well. Dressing is CDI. Plan for dressing removal on thursday with likely dc home on thursday. Сергей Kaminski MD, MD Jan 30, 2018 10:21
--- NOTE | 2018-01-30 11:54 | Infectious Diseases Prog Note ---
Assessment/Plan Assessment/Plan Full consult to follow: A) 1) fevers and leukocytosis 2) right axilla hidradenitis 3) s/p excision and closure 4) pmh noted P) 1) vancomycin and cefepime 2) check cultures 3) chest x-ray with atx 4) monitor labs 5) d/w Dr. Melissa 6) thank you Subjective Allergies: Coded Allergies: CARBINOXAMINE (Verified Allergy, Severe, 02/06/17) TACHYCARDIA PSEUDOEPHEDRINE (Verified Allergy, Severe, 02/06/17) TACHYCARDIA Shrimp (Verified Allergy, Mild, 02/06/17) SKIN RASH Objective Vital Signs Last 24 Hour Vital Signs Date Time Temp Pulse Resp B/P (MAP) Pulse Ox O2 Delivery O2 Flow Rate FiO2 01/30/18 09:11 100.3 01/30/18 09:00 Nasal Cannula 2.0 01/30/18 08:00 101.0 78 20 133/80 (97) 99 01/30/18 08:00 17 01/30/18 04:30 99.8 63 18 130/76 (94) 98 01/30/18 04:00 17 01/30/18 02:00 99.3 01/30/18 00:47 100.8 01/30/18 00:00 101.2 98 18 132/84 (100) 98 01/30/18 00:00 18 01/29/18 21:00 Nasal Cannula 2.0 01/29/18 20:00 98.6 71 18 130/69 (89) 97 01/29/18 20:00 18 01/29/18 16:00 98.4 63 19 130/69 (89) 96 01/29/18 16:00 19 01/29/18 15:27 85 18 96 01/29/18 13:21 98.0 77 20 114/58 (76) 100 01/29/18 13:15 18 01/29/18 12:49 97.8 77 20 117/57 (77) 100 01/29/18 12:45 15 01/29/18 12:40 18 01/29/18 12:40 99.5 85 20 112/64 (80) 96 01/29/18 12:30 18 01/29/18 12:29 98.0 01/29/18 12:26 98.0 69 24 127/66 100 Nasal Cannula 3 01/29/18 12:15 13 01/29/18 12:15 65 24 161/66 100 Nasal Cannula 3 01/29/18 12:00 70 24 153/79 100 Nasal Cannula 3 01/29/18 11:59 15 Height (Feet): 5 Height (Inches): 9.00 Weight (Pounds): 237 Laboratory Tests Test 01/30/18 07:50 White Blood Count 12.2 K/UL (4.8-10.8) H Red Blood Count 4.31 M/UL (4.70-6.10) L Hemoglobin 12.3 G/DL (14.2-18.0) L Hematocrit 36.1 % (42.0-52.0) L Mean Corpuscular Volume 84 FL (80-99) Mean Corpuscular Hemoglobin 28.5 PG (27.0-31.0) Mean Corpuscular Hemoglobin Concent 34.0 G/DL (32.0-36.0) Red Cell Distribution Width 11.2 % (11.6-14.8) L Platelet Count 242 K/UL (150-450) Mean Platelet Volume 6.3 FL (6.5-10.1) L Neutrophils (%) (Auto) 72.0 % (45.0-75.0) Lymphocytes (%) (Auto) 16.2 % (20.0-45.0) L Monocytes (%) (Auto) 10.1 % (1.0-10.0) H Eosinophils (%) (Auto) 0.8 % (0.0-3.0) Basophils (%) (Auto) 0.8 % (0.0-2.0) Sodium Level 135 MMOL/L (136-145) L Potassium Level 3.9 MMOL/L (3.5-5.1) Chloride Level 99 MMOL/L (98-107) Carbon Dioxide Level 29 MMOL/L (21-32) Anion Gap 7 mmol/L (5-15) Blood Urea Nitrogen 7 mg/dL (7-18) Creatinine 1.1 MG/DL (0.55-1.30) Estimat Glomerular Filtration Rate > 60 mL/min (>60) Glucose Level 93 MG/DL (74-106) Calcium Level 8.9 MG/DL (8.5-10.1) Phosphorus Level 3.5 MG/DL (2.5-4.9) Magnesium Level 1.5 MG/DL (1.8-2.4) L Current Medications Medications (Trade) Dose Ordered Sig/Brandon Route PRN Reason Start Time Stop Time Status Last Admin Dose Admin Acetaminophen (Tylenol) 650 mg Q4H PRN ORAL FEVER 01/29/18 08:45 02/28/18 08:44 01/30/18 08:41 Cetylpyridinium Chloride (Cepacol) 1 lozg Q4H PRN ELI sore throat 01/28/18 04:45 02/27/18 04:44 01/29/18 21:16 Dextrose (Dextrose 50%) 25 ml Q30M PRN IV Hypoglycemia 01/27/18 13:15 02/26/18 13:14 Dextrose (Dextrose 50%) 50 ml Q30M PRN IV Hypoglycemia 01/27/18 13:15 02/26/18 13:14 Docusate Sodium (Colace) 100 mg TWICE A DAY ORAL 01/29/18 18:00 02/28/18 17:59 01/30/18 08:42 Heparin Sodium (Porcine) (Heparin 5000 units/ml) 5,000 units EVERY 12 HOURS SUBQ 01/29/18 21:00 02/28/18 20:59 01/30/18 08:42 Hydromorphone HCl 30 ml @ 0 mls/hr Q24H PRN IV For Pain 01/29/18 11:15 01/31/18 11:14 01/29/18 11:59 Lacosamide (Vimpat) 300 mg Q12HR ORAL 01/27/18 21:00 02/26/18 20:59 01/30/18 08:41 Metoclopramide HCl (Reglan) 10 mg Q6H PRN IVP Nausea & Vomiting 01/29/18 11:15 02/28/18 11:14 01/29/18 17:31 Miscellaneous Medication (SUPERVISOR PREPRESS Rate Change) 1 ea DAILY PRN MISC rate change 01/29/18 11:15 01/31/18 11:14 Miscellaneous Medication (SUPERVISOR PREPRESS shift volume) 1 ea Q12HR@0700,1900 MISC 01/29/18 19:00 01/31/18 18:59 01/30/18 07:26 Ondansetron HCl (Zofran) 4 mg Q4H PRN IVP Nausea & Vomiting 01/29/18 18:45 02/28/18 18:44 01/30/18 08:42 Sodium Chloride 1,000 ml @ 50 mls/hr Q20H IV 01/27/18 15:00 02/26/18 14:59 01/30/18 03:07 Temazepam (Restoril) 7.5 mg DAILYPRN PRN ORAL Insomnia 01/29/18 08:45 02/05/18 08:44 Vitamin D (Vitamin D) 1,000 intlu DAILY ORAL 01/28/18 09:00 02/27/18 08:59 01/30/18 08:41 Zolpidem Tartrate (Ambien) 5 mg DAILYPRN PRN ORAL Insomnia 01/29/18 08:45 02/05/18 08:44 Tahmina Child MD Jan 30, 2018 11:54
[2018-01-30 12:00] VITALS: BP 126/85
--- NOTE | 2018-01-30 12:34 | General Progress Note ---
Assessment/Plan Problem List: (1) Sepsis ICD Codes: A41.9 - Sepsis, unspecified organism SNOMED: 76678831 Qualifiers: Qualified Codes: A41.9 - Sepsis, unspecified organism (2) Abscess ICD Codes: L02.91 - Cutaneous abscess, unspecified SNOMED: 570862928 (3) Hidradenitis axillaris ICD Codes: L73.2 - Hidradenitis suppurativa SNOMED: 050672795 (4) Seizure disorder ICD Codes: G40.909 - Epilepsy, unspecified, not intractable, without status epilepticus SNOMED: 113301292 (5) H/o CVA at at 2months of age (6) Anemia ICD Codes: D64.9 - Anemia, unspecified SNOMED: 924745839 (7) Hypoalbuminemia ICD Codes: E88.09 - Other disorders of plasma-protein metabolism, not elsewhere classified SNOMED: 462338884 Assessment/Plan Post-op fever - hernandes cx - ID consult: Dr. Esposito - broaden abx Abscess under R Axilla s/p radical excision by Dr. Riley on 01/27 and Flap closure on 01/29- no complicatios - given description of patients would will cover with IV abx - Surgery following - wound care per Dr. Riley recommendations - ok for diet - pain control with NET LEAD DEVELOPER - bowel regimen - pathology from 01/27 is consistent with HS Hidradenitis Suppurativa - see above Normocytic anemia - f/u iron panel, peripheral smear, b12 and folate-> B12 and folate WNL, no iron deficiency, f/u ferritin - monitor, no transfusion needed unless hgb < 7 Hypoalbuminemia (2.9) - f/u urine analysis to r/o proteinuria -> no proteinuria - check prealbumin Seizure D/O- controlled - continue home medication Vimpat 300 mg PO BID Hypovitaminosis D 3 (level 30) - borderline low level, supplement with 1,000 Units daily H/O CVA at age 2 months DVT proph - heparin Amparo status - Full Code We will monitor patiently closely and address all concerns. Please do not hesitate to contact me regarding any patient or family concerns. we are available 24 hours a day, please call [phone]. Thank you. I have spent 70 minutes regarding patients care, counseling and coordination of care. Subjective Date patient seen: Jan 30, 2018 Time patient seen: 12:00 ROS Limited/Unobtainable: No Allergies: Coded Allergies: CARBINOXAMINE (Verified Allergy, Severe, 02/06/17) TACHYCARDIA PSEUDOEPHEDRINE (Verified Allergy, Severe, 02/06/17) TACHYCARDIA Shrimp (Verified Allergy, Mild, 02/06/17) SKIN RASH Subjective Surgery yesterday AM. Now patient has post op fever of 101.Cultures have been drawn and ID consulted. Patient admits to cough with phlegm. Otherwise patient denies diarrhea, abd pain, dysuria, n, vomiting. Admits to chills. Objective Last 24 Hour Vital Signs Date Time Temp Pulse Resp B/P (MAP) Pulse Ox O2 Delivery O2 Flow Rate FiO2 01/30/18 09:11 100.3 01/30/18 09:00 Nasal Cannula 2.0 01/30/18 08:00 101.0 78 20 133/80 (97) 99 01/30/18 08:00 17 01/30/18 04:30 99.8 63 18 130/76 (94) 98 01/30/18 04:00 17 01/30/18 02:00 99.3 01/30/18 00:47 100.8 01/30/18 00:00 101.2 98 18 132/84 (100) 98 01/30/18 00:00 18 01/29/18 21:00 Nasal Cannula 2.0 01/29/18 20:00 98.6 71 18 130/69 (89) 97 01/29/18 20:00 18 01/29/18 16:00 98.4 63 19 130/69 (89) 96 01/29/18 16:00 19 01/29/18 15:27 85 18 96 01/29/18 13:21 98.0 77 20 114/58 (76) 100 01/29/18 13:15 18 01/29/18 12:49 97.8 77 20 117/57 (77) 100 01/29/18 12:45 15 01/29/18 12:40 18 01/29/18 12:40 99.5 85 20 112/64 (80) 96 Intake and Output 01/29/18 01/30/18 19:00 07:00 Intake Total 1805 ml 880 ml Output Total 185 ml 880 ml Balance 1620 ml 0 ml Intake Oral 500 ml 480 ml IV Total 1305 ml 400 ml Output Urine Total 100 ml 850 ml Drainage Total 35 ml 30 ml Estimated Blood Loss 50 ml # Voids 2 Laboratory Tests 01/30/18 07:50: White Blood Count 12.2H, Red Blood Count 4.31L, Hemoglobin 12.3L, Hematocrit 36.1L, Mean Corpuscular Volume 84, Mean Corpuscular Hemoglobin 28.5, Mean Corpuscular Hemoglobin Concent 34.0, Red Cell Distribution Width 11.2L, Platelet Count 242, Mean Platelet Volume 6.3L, Neutrophils (%) (Auto) 72.0, Lymphocytes (%) (Auto) 16.2L, Monocytes (%) (Auto) 10.1H, Eosinophils (%) (Auto ) 0.8, Basophils (%) (Auto) 0.8, Sodium Level 135L, Potassium Level 3.9, Chloride Level 99, Carbon Dioxide Level 29, Anion Gap 7, Blood Urea Nitrogen 7, Creatinine 1.1, Estimat Glomerular Filtration Rate > 60, Glucose Level 93, Calcium Level 8.9, Phosphorus Level 3.5, Magnesium Level 1.5L Height (Feet): 5 Height (Inches): 9.00 Weight (Pounds): 237 General Appearance: WD/WN, no apparent distress, other - fatigued, cmfortable, sling in place on right arm EENT: PERRL/EOMI, normal ENT inspection Neck: non-tender, normal alignment, supple, abnormal alignment Cardiovascular: normal peripheral pulses, normal rate, regular rhythm, no JVD, other - SHANAE drain in place with 70 ml of sanginous fluid , axillar is dressed with no drainage Respiratory/Chest: chest wall non-tender, normal breath sounds, no respiratory distress Abdomen: normal bowel sounds, non tender, soft Extremities: normal range of motion, non-tender Edema: no edema noted Arm (L), no edema noted Arm (R), no edema noted Leg (L), no edema noted Leg (R), no edema noted Pedal (L), no edema noted Pedal (R), no edema noted Generalized Neurologic: distributing clerk II-XII grossly normal, no motor/sensory deficits, oriented x 3 , responsive, normal mood/affect Skin: normal pigmentation, warm/dry Joanne Melissa DO Jan 30, 2018 12:34
[2018-01-30] MEDS ORDERED: Vancomycin 1.5 GM/D5W 250ML IVPB ONE (13:30)
[2018-01-30 13:36] LABS: APPEARANCE,URINE CLEAR; BILIRUBIN, URINE NEGATIVE (NEGATIVE); COLOR,URINE PALE YELLOW; GLUCOSE, URINE (UA) NEGATIVE (NEGATIVE); KETONES,URINE NEGATIVE (NEGATIVE); LEUKOCYTE ESTERASE ,URINE 1+ (NEGATIVE); NITRITE,URINE NEGATIVE (NEGATIVE); PH,URINE 6.5 (4.5-8.0); PROTEIN,URINE NEGATIVE (NEGATIVE); UROBILINOGEN,URINE NORMAL MG/DL (0.0-1.0)
[2018-01-30 16:00] VITALS: BP 131/87
[2018-01-30] MEDS: Lactobacillus-GG tablet ORAL SCH (17:50)
[2018-01-30 20:55] VITALS: BP 127/89
[2018-01-30] MEDS: Vancomycin 1250mg/D5W 250ml 250 ML IVPB SCH (21:22)
[2018-01-31] VITALS: BP 121/70
[2018-01-31 04:00] VITALS: BP 120/70
[2018-01-31] MEDS: Vancomycin 1250mg/D5W 250ml 250 ML IVPB SCH ×3 (06:01→22:24)
[2018-01-31] MEDS: PCA shift volume MISC SCH ×2 (07:00→19:03)
[2018-01-31 07:43] VITALS: BP 135/80
[2018-01-31 07:52] LABS: BASOPHILS % (AUTO) 1.4 % (0.0-2.0); EOSINOPHILS % (AUTO) 1.2 % (0.0-3.0); HEMATOCRIT 35.6 % (42.0-52.0); HEMOGLOBIN 12.1 G/DL (14.2-18.0); LYMPHOCYTES % (AUTO) 17.4 % (20.0-45.0); MEAN CORPUSCULAR VOLUME 84 FL (80-99); MONOCYTES % (AUTO) 10.1 % (1.0-10.0); PLATELET COUNT 266 K/UL (150-450); RED BLOOD COUNT 4.23 M/UL (4.70-6.10); RED CELL DISTRIBUTION WIDTH 11.5 % (11.6-14.8); WHITE BLOOD COUNT 12.7 K/UL (4.8-10.8)
[2018-01-31 08:08] LABS: ANION GAP 5 mmol/L (5-15); BLOOD UREA NITROGEN 7 mg/dL (7-18); CALCIUM 8.7 MG/DL (8.5-10.1); CARBON DIOXIDE 30 MMOL/L (21-32); CHLORIDE 100 MMOL/L (98-107); CREATININE 1.1 MG/DL (0.55-1.30); POTASSIUM 3.8 MMOL/L (3.5-5.1); SODIUM 135 MMOL/L (136-145)
[2018-01-31] MEDS: Vitamin D 1000 IU Tab ORAL SCH (08:29)
[2018-01-31] MEDS: Lacosamide 100 MG TABLET ORAL SCH ×2 (08:29→20:33)
[2018-01-31] MEDS: Docusate 100mg cap ORAL SCH ×2 (08:29→16:59)
[2018-01-31] MEDS: Lactobacillus-GG tablet ORAL SCH ×2 (08:29→16:59)
[2018-01-31] MEDS: Heparin 5000 units/ml inj SUBQ SCH ×2 (08:30→20:34)
[2018-01-31] MEDS ORDERED: PCA HYDROmorphone 1mg/ml 30 ML IV PRN ×2 (09:00→11:15)
[2018-01-31] MEDS ORDERED: Rate Change PCA 1 Each MISC PRN (09:00)
[2018-01-31] MEDS ORDERED: Tubing IV Secondary IV ONE (09:55)
[2018-01-31 12:00] VITALS: BP 125/77
--- NOTE | 2018-01-31 12:51 | General Progress Note ---
Assessment/Plan Problem List: (1) Sepsis ICD Codes: A41.9 - Sepsis, unspecified organism SNOMED: 40892448 Qualifiers: Qualified Codes: A41.9 - Sepsis, unspecified organism (2) Abscess ICD Codes: L02.91 - Cutaneous abscess, unspecified SNOMED: 566076949 (3) Hidradenitis axillaris ICD Codes: L73.2 - Hidradenitis suppurativa SNOMED: 341723826 (4) Seizure disorder ICD Codes: G40.909 - Epilepsy, unspecified, not intractable, without status epilepticus SNOMED: 527499876 (5) H/o CVA at at 2months of age (6) Anemia ICD Codes: D64.9 - Anemia, unspecified SNOMED: 068097559 (7) Hypoalbuminemia ICD Codes: E88.09 - Other disorders of plasma-protein metabolism, not elsewhere classified SNOMED: 455460227 Assessment/Plan Post-op fever - hernandes cx - ID consult: Dr. Esposito - broaden abx Abscess under R Axilla s/p radical excision by Dr. Riley on 01/27 and Flap closure on 01/29- no complication - given description of patients would will cover with IV abx - Surgery following - wound care per Dr. Riley recommendations - ok for diet - pain control with MANAGER DEVELOPMENT - bowel regimen - pathology from 01/27 is consistent with HS Hidradenitis Suppurativa - see above Normocytic anemia - f/u iron panel, peripheral smear, b12 and folate-> B12 and folate WNL, no iron deficiency, f/u ferritin - monitor, no transfusion needed unless hgb < 7 Hypoalbuminemia (2.9) - f/u urine analysis to r/o proteinuria -> no proteinuria - check prealbumin Seizure D/O- controlled - continue home medication Vimpat 300 mg PO BID Hypovitaminosis D 3 (level 30) - borderline low level, supplement with 1,000 Units daily H/O CVA at age 2 months DVT proph - heparin Amparo status - Full Code We will monitor patiently closely and address all concerns. I have spent 30 minutes regarding patient family leave request paperwork. Please do not hesitate to contact me regarding any patient or family concerns. we are available 24 hours a day, please call [phone]. Thank you. I have spent 70 minutes regarding patients care, counseling and coordination of care. Subjective Date patient seen: Jan 31, 2018 Time patient seen: 12:00 Allergies: Coded Allergies: CARBINOXAMINE (Verified Allergy, Severe, 02/06/17) TACHYCARDIA PSEUDOEPHEDRINE (Verified Allergy, Severe, 02/06/17) TACHYCARDIA Shrimp (Verified Allergy, Mild, 02/06/17) SKIN RASH Subjective Patient continues to have chills and pain controlled with MANAGER DEVELOPMENT pump. Continues to have fevers and abx have been broadened. ID folllowing. No cough, phlegm, diarrhea, dysuria. Patient complains of no apatite. Objective Last 24 Hour Vital Signs Date Time Temp Pulse Resp B/P (MAP) Pulse Ox O2 Delivery O2 Flow Rate FiO2 01/31/18 12:00 98.8 83 17 125/77 (93) 98 01/31/18 12:00 17 01/31/18 11:38 98.8 01/31/18 08:08 Nasal Cannula 2.0 01/31/18 08:00 17 01/31/18 07:43 100.0 83 17 135/80 (98) 98 01/31/18 04:00 17 01/31/18 04:00 98.8 76 17 120/70 (87) 98 01/31/18 00:00 18 01/31/18 00:00 99.3 83 18 121/70 (87) 99 01/30/18 22:00 99.7 01/30/18 21:45 99.7 01/30/18 21:00 Nasal Cannula 2.0 01/30/18 20:55 101.3 96 17 127/89 (102) 99 01/30/18 20:00 17 01/30/18 16:00 100.0 100 18 131/87 (102) 100 01/30/18 16:00 17 Intake and Output 01/30/18 01/31/18 19:00 07:00 Intake Total 1100 ml 500 ml Output Total 710 ml 845 ml Balance 390 ml -345 ml Intake Oral 500 ml IV Total 600 ml 500 ml Output Urine Total 650 ml 800 ml Drainage Total 60 ml 45 ml # Voids 6 Laboratory Tests 01/30/18 13:00: Urine Color Pale yellow, Urine Appearance Clear, Urine pH 6.5, Urine Specific Lottie 1.010, Urine Protein Negative, Urine Glucose (UA) Negative, Urine Ketones Negative, Urine Blood Negative, Urine Nitrite Negative, Urine Bilirubin Negative, Urine Urobilinogen Normal, Urine Leukocyte Esterase 1+H, Urine RBC 0- 2H, Urine WBC 15-20H, Urine Squamous Epithelial Cells Occasional, Urine Bacteria Occasional 01/31/18 07:27: White Blood Count 12.7H, Red Blood Count 4.23L, Hemoglobin 12.1L, Hematocrit 35.6L, Mean Corpuscular Volume 84, Mean Corpuscular Hemoglobin 28.5, Mean Corpuscular Hemoglobin Concent 33.9, Red Cell Distribution Width 11.5L, Platelet Count 266, Mean Platelet Volume 6.1L, Neutrophils (%) (Auto) 70.0, Lymphocytes (%) (Auto) 17.4L, Monocytes (%) (Auto) 10.1H, Eosinophils (%) (Auto ) 1.2, Basophils (%) (Auto) 1.4, Sodium Level 135L, Potassium Level 3.8, Chloride Level 100, Carbon Dioxide Level 30, Anion Gap 5, Blood Urea Nitrogen 7 , Creatinine 1.1, Estimat Glomerular Filtration Rate > 60, Glucose Level 109H, Calcium Level 8.7, Phosphorus Level 3.0, Magnesium Level 1.8 Height (Feet): 5 Height (Inches): 9.00 Weight (Pounds): 237 General Appearance: WD/WN, no apparent distress, other - more awake EENT: PERRL/EOMI, normal ENT inspection Neck: non-tender, normal alignment, supple Cardiovascular: normal peripheral pulses, normal rate, regular rhythm, no gallop/murmur, no JVD Respiratory/Chest: chest wall non-tender, lungs clear, normal breath sounds, no respiratory distress, no accessory muscle use, respiratory distress, other - axilla bandage c/d/i wound, SHANAE drain in place with about 15 cc serosanguinous fluid Abdomen: normal bowel sounds, non tender, soft, no organomegaly Extremities: normal range of motion, non-tender, normal inspection Edema: no edema noted Arm (L), no edema noted Arm (R), no edema noted Leg (L), no edema noted Leg (R), no edema noted Pedal (L), no edema noted Pedal (R), no edema noted Generalized Neurologic: system specialist II-XII grossly normal, no motor/sensory deficits, oriented x 3 , responsive, normal mood/affect Skin: normal pigmentation, warm/dry Lymphatic: tender axillary (L) Joanne Melissa DO Jan 31, 2018 12:51
--- NOTE | 2018-01-31 15:57 | Infectious Diseases Prog Note ---
Assessment/Plan Assessment/Plan Full consult dictated: A) 1) fevers and leukocytosis, rule out sepsis 2) right axilla hidradenitis/wound infection/abscess 3) s/p excision and closure 4) pmh noted P) 1) vancomycin and cefepime 2) check cultures 3) chest x-ray with atx 4) monitor labs 5) d/w Dr. Melissa 6) will f/u Subjective Constitutional: Reports: fever HEENT: Denies: congestion Respiratory: Denies: shortness of breath Gastrointestinal/Abdominal: Denies: nausea, vomiting, diarrhea Allergies: Coded Allergies: CARBINOXAMINE (Verified Allergy, Severe, 02/06/17) TACHYCARDIA PSEUDOEPHEDRINE (Verified Allergy, Severe, 02/06/17) TACHYCARDIA Shrimp (Verified Allergy, Mild, 02/06/17) SKIN RASH Objective Vital Signs Last 24 Hour Vital Signs Date Time Temp Pulse Resp B/P (MAP) Pulse Ox O2 Delivery O2 Flow Rate FiO2 01/31/18 15:00 98.8 01/31/18 12:00 98.8 83 17 125/77 (93) 98 01/31/18 12:00 17 01/31/18 11:38 98.8 01/31/18 08:08 Nasal Cannula 2.0 01/31/18 08:00 17 01/31/18 07:43 100.0 83 17 135/80 (98) 98 01/31/18 04:00 17 01/31/18 04:00 98.8 76 17 120/70 (87) 98 01/31/18 00:00 18 01/31/18 00:00 99.3 83 18 121/70 (87) 99 01/30/18 22:00 99.7 01/30/18 21:45 99.7 01/30/18 21:00 Nasal Cannula 2.0 01/30/18 20:55 101.3 96 17 127/89 (102) 99 01/30/18 20:00 17 01/30/18 16:00 100.0 100 18 131/87 (102) 100 01/30/18 16:00 17 Height (Feet): 5 Height (Inches): 9.00 Weight (Pounds): 237 General Appearance: no acute distress HEENT: normocephalic, atraumatic, anicteric, mucous membranes moist Respiratory/Chest: lungs clear, normal breath sounds, no respiratory distress Cardiovascular: normal rate, regular rhythm, no gallop/murmur Abdomen: normal bowel sounds, soft, non tender, no organomegaly Microbiology Date/Time Source Procedure Growth Status 01/30/18 13:00 Urine,Clean Catch Urine Culture - Preliminary NO GROWTH Resulted Laboratory Tests Test 01/31/18 07:27 White Blood Count 12.7 K/UL (4.8-10.8) H Red Blood Count 4.23 M/UL (4.70-6.10) L Hemoglobin 12.1 G/DL (14.2-18.0) L Hematocrit 35.6 % (42.0-52.0) L Mean Corpuscular Volume 84 FL (80-99) Mean Corpuscular Hemoglobin 28.5 PG (27.0-31.0) Mean Corpuscular Hemoglobin Concent 33.9 G/DL (32.0-36.0) Red Cell Distribution Width 11.5 % (11.6-14.8) L Platelet Count 266 K/UL (150-450) Mean Platelet Volume 6.1 FL (6.5-10.1) L Neutrophils (%) (Auto) 70.0 % (45.0-75.0) Lymphocytes (%) (Auto) 17.4 % (20.0-45.0) L Monocytes (%) (Auto) 10.1 % (1.0-10.0) H Eosinophils (%) (Auto) 1.2 % (0.0-3.0) Basophils (%) (Auto) 1.4 % (0.0-2.0) Sodium Level 135 MMOL/L (136-145) L Potassium Level 3.8 MMOL/L (3.5-5.1) Chloride Level 100 MMOL/L (98-107) Carbon Dioxide Level 30 MMOL/L (21-32) Anion Gap 5 mmol/L (5-15) Blood Urea Nitrogen 7 mg/dL (7-18) Creatinine 1.1 MG/DL (0.55-1.30) Estimat Glomerular Filtration Rate > 60 mL/min (>60) Glucose Level 109 MG/DL (74-106) H Calcium Level 8.7 MG/DL (8.5-10.1) Phosphorus Level 3.0 MG/DL (2.5-4.9) Magnesium Level 1.8 MG/DL (1.8-2.4) Current Medications Medications (Trade) Dose Ordered Sig/Brandon Route PRN Reason Start Time Stop Time Status Last Admin Dose Admin Acetaminophen (Tylenol) 650 mg Q4H PRN ORAL FEVER 01/29/18 08:45 02/28/18 08:44 01/30/18 20:59 Cefepime HCl 2 gm/ Dextrose 100 ml @ 200 mls/hr Q12HR IVPB 01/30/18 21:00 02/06/18 20:59 01/31/18 08:29 Cetylpyridinium Chloride (Cepacol) 1 lozg Q4H PRN ELI sore throat 01/28/18 04:45 02/27/18 04:44 01/29/18 21:16 Dextrose (Dextrose 50%) 25 ml Q30M PRN IV Hypoglycemia 01/27/18 13:15 02/26/18 13:14 Dextrose (Dextrose 50%) 50 ml Q30M PRN IV Hypoglycemia 01/27/18 13:15 02/26/18 13:14 Docusate Sodium (Colace) 100 mg TWICE A DAY ORAL 01/29/18 18:00 02/28/18 17:59 01/31/18 08:29 Heparin Sodium (Porcine) (Heparin 5000 units/ml) 5,000 units EVERY 12 HOURS SUBQ 01/29/18 21:00 02/28/18 20:59 01/31/18 08:30 Hydromorphone HCl 30 ml @ 0 mls/hr FINANCIAL SALES ADVISOR protocol PRN IV For Pain 01/31/18 09:00 02/02/18 08:59 Hydromorphone HCl 30 ml @ 0 mls/hr Q24H PRN IV For Pain 01/31/18 11:15 02/02/18 11:14 01/31/18 11:08 Hydromorphone HCl (Dilaudid) 2 mg Q3H PRN IVP Severe Breakthru Pain (>7) 01/31/18 14:30 02/07/18 14:29 Hydromorphone HCl (Dilaudid) 2 mg Q4H PRN IVP Moderate Breakthru Pain (5-7) 01/31/18 14:30 02/07/18 14:29 01/31/18 14:30 Lacosamide (Vimpat) 300 mg Q12HR ORAL 01/27/18 21:00 02/26/18 20:59 01/31/18 08:29 Lactobacillus Acidophilus (Culturelle) 1 tab TWICE A DAY ORAL 01/30/18 18:00 03/01/18 17:59 01/31/18 08:29 Metoclopramide HCl (Reglan) 10 mg Q6H PRN IVP Nausea & Vomiting 01/29/18 11:15 02/28/18 11:14 01/29/18 17:31 Miscellaneous Medication (FINANCIAL SALES ADVISOR Rate Change) 1 ea DAILY PRN MISC rate change 01/31/18 09:00 02/02/18 08:59 Miscellaneous Medication (FINANCIAL SALES ADVISOR shift volume) 1 ea Q12HR@0700,1900 MISC 01/31/18 19:00 02/02/18 18:59 Ondansetron HCl (Zofran) 4 mg Q4H PRN IVP Nausea & Vomiting 01/29/18 18:45 02/28/18 18:44 01/31/18 14:30 Sodium Chloride 1,000 ml @ 100 mls/hr Q10H IV 01/31/18 15:00 03/02/18 14:59 01/31/18 15:05 Temazepam (Restoril) 7.5 mg DAILYPRN PRN ORAL Insomnia 01/29/18 08:45 02/05/18 08:44 Vancomycin HCl (Vanco rx to dose) 1 ea DAILY PRN MISC Per rx protocol 01/30/18 12:00 03/01/18 11:59 Vancomycin HCl/ Dextrose 250 ml @ 150 mls/hr Q8H IVPB 01/30/18 22:00 02/04/18 21:59 01/31/18 14:10 Vitamin D (Vitamin D) 1,000 intlu DAILY ORAL 01/28/18 09:00 02/27/18 08:59 01/31/18 08:29 Zolpidem Tartrate (Ambien) 5 mg DAILYPRN PRN ORAL Insomnia 01/29/18 08:45 02/05/18 08:44 Tahmina Child MD Jan 31, 2018 15:57
[2018-01-31 16:00] VITALS: BP 122/75
[2018-01-31 20:57] VITALS: BP 126/69
[2018-02-01] VITALS: BP 115/79
--- NOTE | 2018-02-01 00:31 | Consultation ---
DATE OF CONSULTATION: 01/31/2018 CONSULTING PHYSICIAN: Tahmina Child M.D. ATTENDING PHYSICIAN: Paco Kirk M.D. REFERRING PHYSICIAN: . REASON FOR CONSULTATION: Possible sepsis, fevers, and leukocytosis. The patient coming in to the hospital for debridement and flap closure for right hidradenitis suppurativa with infected wound and abscess. HISTORY OF PRESENT ILLNESS: This is a very pleasant 17-year-old male who has a history of hidradenitis suppurativa who comes in to [facility] because of swelling and redness in the right axilla. The patient has a history of left axillary hidradenitis suppurativa. The patient was diagnosed with right axilla infected wound and abscess. The patient also has what looks like possible cellulitis with redness and warmth. The patient is status post debridement and resection or excision of the hidradenitis. The patient is status post excision of right axillary hydradenitis with flap and closure, and I also believe debridement of the right axilla. The patient is now status post excision and then closure. The patient now has postoperative fevers and elevated white count. There was concern for underlying sepsis. Wound at this time is surgically covered. The patient is being followed by Dr. Riley. Infectious Disease consult was requested because of the fevers and leukocytosis to rule out any underlying sepsis. I saw the patient yesterday on January 30 and put the patient on vancomycin and cefepime. Cultures were ordered. Chest x-ray showed atelectasis. Urine culture so far is negative. Blood cultures are pending. The patient still has some low-grade fevers earlier in this morning and yesterday, still has leukocytosis. Case was discussed with and the patient, and also the patient's mother yesterday. The patient will continue on vancomycin and cefepime and also was placed on probiotics. REVIEW OF SYSTEMS: CONSTITUTIONAL: He has maybe some generalized fatigue, but no focal weakness. He has had fevers, but no chills currently. HEAD AND NECK: No head pain or neck pain. CARDIAC: No chest pain. He has right axilla postoperative pain. GASTROINTESTINAL: No nausea or diarrhea. GENITOURINARY: No dysuria or frequency. PULMONARY: No congestion or shortness of breath. SKIN: No rash or itching. EXTREMITIES: No extremity pain. NEUROLOGIC: No seizures. PAST MEDICAL HISTORY: Consists of following. The patient has a past medical history of hidradenitis suppurativa and history of seizures where he is on Vimpat, history of surgery to the left axilla and also history of right axilla hidradenitis suppurativa. He has no history of diabetes or hypertension, just the seizure disorder. ALLERGIES: Include carbinoxamine, pseudoephedrine, and shrimp. SOCIAL HISTORY: Negative for smoking, alcohol, or drug abuse. FAMILY HISTORY: Noncontributory. MEDICATIONS: Upon reviewing the MAR, the patient is on the following medications. The patient is on Dilaudid. He is on hydromorphone. He is on vancomycin, cefepime, and lactobacillus. He is on heparin. He is on Zofran, docusate, Reglan, Restoril, Ambien, Cepacol, and Vimpat (lacosamide). He is on also vitamin D and IV fluids. Outside medications noted and reconciliated. PHYSICAL EXAMINATION: VITAL SIGNS: The patient has been having persistent fevers, T-max 101.3; earlier this morning, his temperature is 100.0; currently, temperature is 98.8; pulse rate 83; respiratory rate 17; blood pressure 125/77; and saturation 98%. Pulse rate has been as high as 100. GENERAL: Alert and responsive. No distress. HEAD AND NECK: Oral exam, no thrush. Eye exam, no icterus. Neck is supple. No JVD. Normocephalic. HEART: No gallop or murmur. ABDOMEN: Soft. Positive bowel sounds. Nontender. LUNGS: Clear bilaterally. No rhonchi and rales. SKIN: No rash. MUSCULOSKELETAL: No effusion. Legs without cellulitis. PERIPHERAL VASCULAR: No cyanosis or gangrene. GENITOURINARY: No Murphy. No CVA tenderness. LINE SITES: Without phlebitis. NEUROLOGICAL: Intact. Nonfocal. Right axilla wound is covered postsurgically. LABORATORY AND DIAGNOSTIC DATA: Laboratory data is as follows: White count 12.7, hemoglobin 12.1. Creatinine is 1.1. LFTs on admission were unremarkable. Cultures, urine culture is negative. Blood cultures are pending. Chest x-ray showed atelectasis. ASSESSMENT AND PLAN: 1. This is a 17-year-old male who has history of hidradenitis suppurativa of the both axilla. The patient is status post surgery in regard to right axilla, infected wound, cellulitis, and abscess, status post debridement and radical excision and closure. The patient has postoperative fevers, rule out underlying sepsis with tachycardia, fevers, and leukocytosis. Continue vancomycin and cefepime. IV antibiotics for MRSA and gram-negative coverage. This will also cover any wound infection. This will also cover pathogens regarding any wound infection the patient might have had. Continue vancomycin and cefepime for MRSA and gram-negative coverage. Check cultures, laboratories, and chest x-ray. Again, await blood cultures for any underlying sepsis. If the patient defervesces and no obvious etiology of the leukocytosis or fevers, consider streamlining of the antibiotics, may be switching to oral antibiotics soon and treating the recent soft tissue infection of the right axilla status post debridement and closure. 2. Hidradenitis suppurativa of the axilla bilaterally. History of surgery on the left axilla and recently on the right axilla for the hidradenitis suppurativa. 3. History of seizures. Continue treatment per primary. 4. Pain management per primary and Surgery. 5. Wound care per Surgery. 6. No history of diabetes or hypertension. 7. Allergies to carbinoxamine, pseudoephedrine, and shrimp. 8. Family history is noncontributory. 9. Social history is negative. 10. MAR was noted. 11. Case was discussed with RN. 12. Case was discussed with Dr. Riley. 13. Continue treatment per primary consultants. 14. Notes and records were reviewed. 15. Orders were entered. Tahmina Child M.D. DR: SONJA JOB#: [id number] CC:
[2018-02-01 04:00] VITALS: BP 138/68
[2018-02-01] MEDS: Vancomycin 1250mg/D5W 250ml 250 ML IVPB SCH (06:00)
[2018-02-01 07:01] LABS: BASOPHILS % (AUTO) 0.8 % (0.0-2.0); HEMATOCRIT 34.3 % (42.0-52.0); HEMOGLOBIN 11.6 G/DL (14.2-18.0); MEAN CORPUSCULAR VOLUME 84 FL (80-99); MONOCYTES % (AUTO) 8.9 % (1.0-10.0); NEUTROPHILS % (AUTO) 66.3 % (45.0-75.0); PLATELET COUNT 282 K/UL (150-450); RED CELL DISTRIBUTION WIDTH 11.3 % (11.6-14.8); WHITE BLOOD COUNT 10.2 K/UL (4.8-10.8)
[2018-02-01 07:10] LABS: ANION GAP 4 mmol/L (5-15); BLOOD UREA NITROGEN 8 mg/dL (7-18); CALCIUM 8.6 MG/DL (8.5-10.1); CARBON DIOXIDE 29 MMOL/L (21-32); CHLORIDE 102 MMOL/L (98-107); PHOSPHORUS 3.8 MG/DL (2.5-4.9); POTASSIUM 4.2 MMOL/L (3.5-5.1); SODIUM 135 MMOL/L (136-145)
[2018-02-01] MEDS: PCA shift volume MISC SCH (07:21)
[2018-02-01 08:00] VITALS: BP 136/81
[2018-02-01] MEDS: Docusate 100mg cap ORAL SCH ×2 (08:27→18:09)
[2018-02-01] MEDS: Vitamin D 1000 IU Tab ORAL SCH (08:27)
[2018-02-01] MEDS: Lacosamide 100 MG TABLET ORAL SCH (08:27)
[2018-02-01] MEDS: Heparin 5000 units/ml inj SUBQ SCH ×2 (08:35→20:42)
[2018-02-01] MEDS: Lactobacillus-GG tablet ORAL SCH ×2 (08:36→18:08)
[2018-02-01] MEDS ORDERED: BACTRIM DS TAB1 EAC1 ORAL (09:34)
[2018-02-01] MEDS ORDERED: ZOFRAN4 MG ORAL (09:34)
[2018-02-01] MEDS ORDERED: CEPHALEXIN500 MG ORAL (09:34)
[2018-02-01] MEDS ORDERED: COLACE100 MG ORAL (09:34)
[2018-02-01] MEDS ORDERED: NORCO 5-325 TA1 EACH ORAL (09:34)
--- NOTE | 2018-02-01 09:36 | Discharge Instructions ---
Discharge Instructions Discharge Instructions Follow up with: PCP within one week Call MD/Return to Hospital if: fevers, chills, worseing oain Diet: regular Resume Normal Activity?: No - no heavy lifting for one month For Congestive Heart Failure Reminder Report to your physician any weight gain of 5 pounds or more in one week. Joanne Melissa DO Feb 01, 2018 09:36
--- NOTE | 2018-02-01 10:33 | General Progress Note ---
Assessment/Plan Problem List: (1) Sepsis ICD Codes: A41.9 - Sepsis, unspecified organism SNOMED: 65150730 Qualifiers: Qualified Codes: A41.9 - Sepsis, unspecified organism (2) Abscess ICD Codes: L02.91 - Cutaneous abscess, unspecified SNOMED: 984273505 (3) Hidradenitis axillaris ICD Codes: L73.2 - Hidradenitis suppurativa SNOMED: 735153378 (4) Seizure disorder ICD Codes: G40.909 - Epilepsy, unspecified, not intractable, without status epilepticus SNOMED: 213079998 (5) H/o CVA at at 2months of age (6) Anemia ICD Codes: D64.9 - Anemia, unspecified SNOMED: 025879617 (7) Hypoalbuminemia ICD Codes: E88.09 - Other disorders of plasma-protein metabolism, not elsewhere classified SNOMED: 706620130 Assessment/Plan Post-op fever - hernandes cx - ID consult: Dr. Esposito - broaden abx Abscess under R Axilla s/p radical excision by Dr. Riley on 01/27 and Flap closure on 01/29- no complication - given description of patients would will cover with IV abx - Surgery following - wound care per Dr. Riley recommendations - ok for diet - pain control with NETWORK OPERATIONS ANALYST - bowel regimen - pathology from 01/27 is consistent with HS Hidradenitis Suppurativa - see above Normocytic anemia - f/u iron panel, peripheral smear, b12 and folate-> B12 and folate WNL, no iron deficiency, f/u ferritin - monitor, no transfusion needed unless hgb < 7 Hypoalbuminemia (2.9) - f/u urine analysis to r/o proteinuria -> no proteinuria - check prealbumin Seizure D/O- controlled - continue home medication Vimpat 300 mg PO BID Hypovitaminosis D 3 (level 30) - borderline low level, supplement with 1,000 Units daily H/O CVA at age 2 months DVT proph - heparin Amparo status - Full Code We will monitor patiently closely and address all concerns. I have spent 30 minutes regarding patient family leave request paperwork. Please do not hesitate to contact me regarding any patient or family concerns. we are available 24 hours a day, please call [phone]. Thank you. I have spent 70 minutes regarding patients care, counseling and coordination of care. Subjective Date patient seen: Feb 01, 2018 ROS Limited/Unobtainable: No Allergies: Coded Allergies: CARBINOXAMINE (Verified Allergy, Severe, 02/06/17) TACHYCARDIA PSEUDOEPHEDRINE (Verified Allergy, Severe, 02/06/17) TACHYCARDIA Shrimp (Verified Allergy, Mild, 02/06/17) SKIN RASH Subjective Patient continues to have chills and pain controlled with NETWORK OPERATIONS ANALYST pump. No fevers today, patient continues to have chills. No cough, phlegm, diarrhea, dysuria. Patient complains of no apatite. Objective Last 24 Hour Vital Signs Date Time Temp Pulse Resp B/P (MAP) Pulse Ox O2 Delivery O2 Flow Rate FiO2 02/01/18 08:59 Nasal Cannula 2.0 02/01/18 08:00 98.2 20 136/81 (99) 97 02/01/18 08:00 20 02/01/18 04:00 99.1 78 20 138/68 (91) 97 02/01/18 04:00 20 02/01/18 00:00 98.8 83 18 115/79 (91) 97 02/01/18 00:00 18 01/31/18 21:00 Nasal Cannula 2.0 01/31/18 20:57 98.4 71 18 126/69 (88) 95 01/31/18 20:00 18 01/31/18 16:47 99.6 01/31/18 16:00 100.2 90 17 122/75 (91) 98 01/31/18 16:00 17 01/31/18 15:00 98.8 01/31/18 12:00 98.8 83 17 125/77 (93) 98 01/31/18 12:00 17 01/31/18 11:38 98.8 Intake and Output 01/31/18 02/01/18 18:59 06:59 Intake Total 1330 ml 1300 ml Output Total 20 ml 115 ml Balance 1310 ml 1185 ml Intake Oral 780 ml 200 ml IV Total 550 ml 1100 ml Drainage Total 20 ml 115 ml # Voids 2 2 Laboratory Tests 01/31/18 21:15: Vancomycin Level Trough 11.1 02/01/18 05:57: White Blood Count 10.2, Red Blood Count 4.10L, Hemoglobin 11.6L, Hematocrit 34.3L, Mean Corpuscular Volume 84, Mean Corpuscular Hemoglobin 28.4, Mean Corpuscular Hemoglobin Concent 33.9, Red Cell Distribution Width 11.3L, Platelet Count 282, Mean Platelet Volume 6.5, Neutrophils (%) (Auto) 66.3, Lymphocytes (%) (Auto) 22.0, Monocytes (%) (Auto) 8.9, Eosinophils (%) (Auto) 2.0, Basophils (%) (Auto) 0.8, Sodium Level 135L, Potassium Level 4.2, Chloride Level 102, Carbon Dioxide Level 29, Anion Gap 4L, Blood Urea Nitrogen 8, Creatinine 1.0, Estimat Glomerular Filtration Rate > 60, Glucose Level 104, Calcium Level 8.6, Phosphorus Level 3.8, Magnesium Level 1.6L Height (Feet): 5 Height (Inches): 9.00 Weight (Pounds): 237 General Appearance: WD/WN, no apparent distress, alert EENT: PERRL/EOMI, normal ENT inspection Neck: non-tender, normal alignment, supple Cardiovascular: normal peripheral pulses, normal rate, no gallop/murmur, no JVD Respiratory/Chest: chest wall non-tender, lungs clear, normal breath sounds, no respiratory distress, other - right axilla dressed, C/D/I, SHANAE drain withabout 5 cc serosanginous fluid Abdomen: normal bowel sounds, non tender, soft, no organomegaly, no mass Edema: no edema noted Arm (L), no edema noted Arm (R), no edema noted Leg (L), no edema noted Leg (R), no edema noted Pedal (L), no edema noted Pedal (R), no edema noted Generalized Neurologic: python consultant II-XII grossly normal, no motor/sensory deficits, oriented x 3 , responsive, normal mood/affect Skin: normal pigmentation, warm/dry Joanne Melissa DO Feb 01, 2018 10:33
--- NOTE | 2018-02-01 11:31 | General Progress Note ---
Progress Note Progress Note Pt seen and examined. POD # 3 from closure of right axillary wound with flap. Doing well. Flap alive. Plan on DC in Am with dressing changes. Сергей Kaminski MD, MD Feb 01, 2018 11:31
[2018-02-01 12:00] VITALS: BP 128/62
--- NOTE | 2018-02-01 13:02 | Infectious Diseases Prog Note ---
Assessment/Plan Assessment/Plan A) 1) fevers and leukocytosis, rule out sepsis - w/u negative, clinically improved 2) right axilla hidradenitis/wound infection/abscess 3) s/p excision/debridement and closure 4) pmh - sz, hidradenitis suppurativa 5) allergies - no abx allergies, noted, sh-negative, fh-nc, mar noted 6) d/w RN P) 1) vancomycin and cefepime - change to bactim and keflex for 7 days 2) continue tx per primary and surgery 3) monitor labs as indicated 4) d/w Dr. Melissa 5) d/w patient Subjective Constitutional: Denies: fever HEENT: Denies: congestion Respiratory: Denies: shortness of breath Gastrointestinal/Abdominal: Denies: nausea, vomiting, diarrhea Genitourinary: Denies: dysuria, hematuria Neurologic: Denies: headache Psychiatric: Denies: depression Skin: Denies: rash Hematologic: Denies: bleeding Musculoskeletal: Denies: pain Allergies: Coded Allergies: CARBINOXAMINE (Verified Allergy, Severe, 02/06/17) TACHYCARDIA PSEUDOEPHEDRINE (Verified Allergy, Severe, 02/06/17) TACHYCARDIA Shrimp (Verified Allergy, Mild, 02/06/17) SKIN RASH Objective Vital Signs Last 24 Hour Vital Signs Date Time Temp Pulse Resp B/P (MAP) Pulse Ox O2 Delivery O2 Flow Rate FiO2 02/01/18 08:59 Nasal Cannula 2.0 02/01/18 08:00 98.2 20 136/81 (99) 97 02/01/18 08:00 20 02/01/18 04:00 99.1 78 20 138/68 (91) 97 02/01/18 04:00 20 02/01/18 00:00 98.8 83 18 115/79 (91) 97 02/01/18 00:00 18 01/31/18 21:00 Nasal Cannula 2.0 01/31/18 20:57 98.4 71 18 126/69 (88) 95 01/31/18 20:00 18 01/31/18 16:47 99.6 01/31/18 16:00 100.2 90 17 122/75 (91) 98 01/31/18 16:00 17 01/31/18 15:00 98.8 Height (Feet): 5 Height (Inches): 9.00 Weight (Pounds): 237 General Appearance: no acute distress HEENT: normocephalic, atraumatic, anicteric, mucous membranes moist Respiratory/Chest: lungs clear, normal breath sounds, no respiratory distress, no accessory muscle use Cardiovascular: normal rate, regular rhythm, no gallop/murmur, no JVD Abdomen: normal bowel sounds, soft, non tender, no organomegaly, non distended Genitourinary: other - no darden, no cva pain Extremities: no cyanosis Skin: no rash, ulcers - rigth axilla wound covered Neurologic/Psychiatric: jigmaker II-XII grossly normal, alert, responsive Lymphatic: no neck adenopathy Musculoskeletal: no effusion Objective Chest x-ray - COMPARISON: None FINDINGS: Single frontal view demonstrates slightly prominent heart size though this may be due to hypoventilatory examination. Hypoventilatory examination with compensatory compressive changes at the bases. No pleural effusions. The visualized osseous structures are within normal limits. IMPRESSION: Hypoventilatory examination, correlation can be obtained with full inspiration for further evaluation. Microbiology Date/Time Source Procedure Growth Status 01/30/18 09:00 Blood Blood Culture - Preliminary NO GROWTH AFTER 24 HOURS Resulted 01/30/18 08:50 Blood Blood Culture - Preliminary NO GROWTH AFTER 24 HOURS Resulted 01/30/18 13:00 Urine,Clean Catch Urine Culture - Preliminary NO GROWTH AFTER 24 HOURS Resulted Laboratory Tests Test 01/31/18 21:15 02/01/18 05:57 Vancomycin Level Trough 11.1 ug/mL (5.0-12.0) White Blood Count 10.2 K/UL (4.8-10.8) Red Blood Count 4.10 M/UL (4.70-6.10) L Hemoglobin 11.6 G/DL (14.2-18.0) L Hematocrit 34.3 % (42.0-52.0) L Mean Corpuscular Volume 84 FL (80-99) Mean Corpuscular Hemoglobin 28.4 PG (27.0-31.0) Mean Corpuscular Hemoglobin Concent 33.9 G/DL (32.0-36.0) Red Cell Distribution Width 11.3 % (11.6-14.8) L Platelet Count 282 K/UL (150-450) Mean Platelet Volume 6.5 FL (6.5-10.1) Neutrophils (%) (Auto) 66.3 % (45.0-75.0) Lymphocytes (%) (Auto) 22.0 % (20.0-45.0) Monocytes (%) (Auto) 8.9 % (1.0-10.0) Eosinophils (%) (Auto) 2.0 % (0.0-3.0) Basophils (%) (Auto) 0.8 % (0.0-2.0) Sodium Level 135 MMOL/L (136-145) L Potassium Level 4.2 MMOL/L (3.5-5.1) Chloride Level 102 MMOL/L (98-107) Carbon Dioxide Level 29 MMOL/L (21-32) Anion Gap 4 mmol/L (5-15) L Blood Urea Nitrogen 8 mg/dL (7-18) Creatinine 1.0 MG/DL (0.55-1.30) Estimat Glomerular Filtration Rate > 60 mL/min (>60) Glucose Level 104 MG/DL (74-106) Calcium Level 8.6 MG/DL (8.5-10.1) Phosphorus Level 3.8 MG/DL (2.5-4.9) Magnesium Level 1.6 MG/DL (1.8-2.4) L Current Medications Medications (Trade) Dose Ordered Sig/Brandon Route PRN Reason Start Time Stop Time Status Last Admin Dose Admin Acetaminophen (Tylenol) 650 mg Q4H PRN ORAL FEVER 01/29/18 08:45 02/28/18 08:44 01/31/18 16:17 Acetaminophen/ Hydrocodone Bitart ([place] 10/325) 1 tab Q4H PRN ORAL For Pain 02/01/18 18:00 02/08/18 17:59 Cetylpyridinium Chloride (Cepacol) 1 lozg Q4H PRN ELI sore throat 01/28/18 04:45 02/27/18 04:44 01/29/18 21:16 Dextrose (Dextrose 50%) 25 ml Q30M PRN IV Hypoglycemia 01/27/18 13:15 02/26/18 13:14 Dextrose (Dextrose 50%) 50 ml Q30M PRN IV Hypoglycemia 01/27/18 13:15 02/26/18 13:14 Docusate Sodium (Colace) 100 mg TWICE A DAY ORAL 01/29/18 18:00 02/28/18 17:59 02/01/18 08:27 Heparin Sodium (Porcine) (Heparin 5000 units/ml) 5,000 units EVERY 12 HOURS SUBQ 01/29/18 21:00 02/28/18 20:59 02/01/18 08:35 Hydromorphone HCl 30 ml @ 0 mls/hr [employer] protocol PRN IV For Pain 01/31/18 09:00 02/02/18 08:59 Hydromorphone HCl 30 ml @ 0 mls/hr Q24H PRN IV For Pain 01/31/18 11:15 02/02/18 11:14 01/31/18 11:08 Hydromorphone HCl (Dilaudid) 2 mg Q3H PRN IVP Severe Breakthru Pain (>7) 01/31/18 14:30 02/07/18 14:29 02/01/18 11:17 Hydromorphone HCl (Dilaudid) 2 mg Q4H PRN IVP Moderate Breakthru Pain (5-7) 01/31/18 14:30 02/07/18 14:29 01/31/18 14:30 Lacosamide (Vimpat) 300 mg Q12HR ORAL 01/27/18 21:00 02/26/18 20:59 02/01/18 08:27 Lactobacillus Acidophilus (Culturelle) 1 tab TWICE A DAY ORAL 01/30/18 18:00 03/01/18 17:59 02/01/18 08:36 Metoclopramide HCl (Reglan) 10 mg Q6H PRN IVP Nausea & Vomiting 01/29/18 11:15 02/28/18 11:14 01/29/18 17:31 Miscellaneous Medication (WO[employer] 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 WORKER Rate Change) 1 ea DAILY PRN MISC rate change 01/31/18 09:00 02/02/18 08:59 Miscellaneous Medication ([employer]ING WORKER shift volume) 1 ea Q12HR@0700,1900 MISC 01/31/18 19:00 02/02/18 18:59 02/01/18 07:21 Ondansetron HCl (Zofran) 4 mg Q4H PRN IVP Nausea & Vomiting 01/29/18 18:45 02/28/18 18:44 01/31/18 14:30 Sodium Chloride 1,000 ml @ 100 mls/hr Q10H IV 01/31/18 15:00 03/02/18 14:59 02/01/18 10:58 Temazepam (Restoril) 7.5 mg DAILYPRN PRN ORAL Insomnia 01/29/18 08:45 02/05/18 08:44 Vitamin D (Vitamin D) 1,000 intlu DAILY ORAL 01/28/18 09:00 02/27/18 08:59 02/01/18 08:27 Zolpidem Tartrate (Ambien) 5 mg DAILYPRN PRN ORAL Insomnia 01/29/18 08:45 02/05/18 08:44 Tahmina Child MD Feb 01, 2018 13:02
[2018-02-01 16:00] VITALS: BP 123/78
[2018-02-01] MEDS: Metoclopramide 10mg/2ml Inj IVP PRN (16:55)
[2018-02-01] MEDS: Cephalexin 500mg cap ORAL SCH (18:08)
[2018-02-01 20:00] VITALS: BP 124/91
[2018-02-01] MEDS: Bactrim-DS 1 tab ORAL SCH (20:36)
[2018-02-01] MEDS ORDERED: Lacosamide 100 MG TABLET ORAL SCH (21:00)
[2018-02-01] MEDS ORDERED: Lacosamide 50mg tablet ORAL SCH (21:00)
[2018-02-01] MEDS: HYDROcodone/Acetamin 10/325 tab ORAL PRN (21:44)
[2018-02-02] VITALS: BP 124/74
[2018-02-02] MEDS: Cephalexin 500mg cap ORAL SCH ×3 (00:01→10:31)
[2018-02-02 04:00] VITALS: BP 129/76
[2018-02-02] MEDS: HYDROcodone/Acetamin 10/325 tab ORAL PRN (04:38)
[2018-02-02 08:00] VITALS: BP 142/77
[2018-02-02] MEDS ORDERED: Lacosamide 50mg tablet ORAL SCH (09:00)
[2018-02-02] MEDS: Lactobacillus-GG tablet ORAL SCH (09:48)
[2018-02-02] MEDS: Vitamin D 1000 IU Tab ORAL SCH (09:48)
[2018-02-02] MEDS: Docusate 100mg cap ORAL SCH (09:48)
[2018-02-02] MEDS: Bactrim-DS 1 tab ORAL SCH (09:48)
[2018-02-02] MEDS: Heparin 5000 units/ml inj SUBQ SCH (09:57)
[2018-02-02] MEDS ORDERED: NORCO 10-325 T1 EACH ORAL (10:17)
--- NOTE | 2018-02-02 11:01 | Discharge Summary ---
Discharge Summary Hospital Course Date of Admission Jan 27, 2018 at 09:17 Date of Discharge 02/02/18 Admitting Diagnosis abscess R axilla, HS HPI Anderson Hutchinson is a 17 year old male who was admitted on Jan 27, 2018 at 09:17 for Hidradenitis Consultations Plastic Surgery: Dr. Riley Infectious Disease: Dr. Armendariz Hospital Course 17 yo AA Male with PMH of HS under BL axilla and seizures on vimpat presents for right axilla abscess and worsening hidradenitis suppurativa. Patient was placed on IV antibiotics and taken to OR for radical excision of right axillary abscess and HS on 01/27 with revision and flap closure on 01/29. SHANAE drain was left in place until removal on day of discharge. Patient was found to have a fever after surgery and antibiotics were broadened. Infectious disease was consulted as well. Blood cultures, urine cultures and cxr were normal for any infectious process. Pain was controlled with SERVICE [employer]ER Dilaudid during hospital stay and patient was transitioned to [place] 10 prior to discharge with pain controlled. On day of discharge patient is afebrile and stable for discharge home. PE: Gen: WDWN, alert, NAD HEENT: PERRLA, NCAT NECK: soft no CLAD CV: RRR CHEST: r axillary wound with anisha present, minimal tenderness, C/D/I RESP: CTAB no w/r/c ABD: soft, bowel sounds wnl EXT: no edema or cyanosis NEURO: no obvious deficits Discharge medications: [place] 10 mg PRN Pain Zofran Colace Keflex and Bactrim x 7 days Contiue home meds: vimpat vitamin D Discharge Condition Upon Discharge: stable Discharge Disposition Patient was discharged to Home (01) Discharge Diagnoses: (1) Hidradenitis axillaris (2) Hypovitaminosis D (3) Seizure disorder (4) H/o CVA at at 2months of age (5) Anemia Discharge Instructions Discharge Instructions Follow up with: PCP within one week Call MD/Return to Hospital if: fevers, chills, worseing Joanne Gregory DO Feb 02, 2018 11:01
== END 2018-02-02 11:15 | disposition home or self-care (01) | DRG 572 ==
LOC: SDSOVERFLO 09:17 → 3E 14:05
PROC: 0JBD0ZZ Excision of Right Upper Arm Subcutaneous Tissue and Fascia, Open Approach (ICD-10-PCS; principal; 2018-01-27 11:30)
PROC: 0H85XZZ Division of Chest Skin, External Approach (ICD-10-PCS; principal; 2018-01-27 11:30)
PROC: 0H8BXZZ Division of Right Upper Arm Skin, External Approach (ICD-10-PCS; principal; 2018-01-27 11:30)
PROC: 0JXD0ZZ Transfer Right Upper Arm Subcutaneous Tissue and Fascia, Open Approach (ICD-10-PCS; 2018-01-29)
PROC: 0JX60ZZ Transfer Chest Subcutaneous Tissue and Fascia, Open Approach (ICD-10-PCS; 2018-01-29)
DX: L02.411 Cutaneous abscess of right axilla (principal); L73.2 Hidradenitis suppurativa; Z88.8 Allergy status to other drugs, medicaments and biological substances; Z91.013 Allergy to seafood; G40.909 Epilepsy, unspecified, not intractable, without status epilepticus; Z86.73 Personal history of transient ischemic attack (TIA), and cerebral infarction without residual deficits; E55.9 Vitamin D deficiency, unspecified; D64.9 Anemia, unspecified; R50.82 Postprocedural fever; E88.09 Other disorders of plasma-protein metabolism, not elsewhere classified
CPT/HCPCS: 36415; 71045; 80048; 80053; 80202; 81001; 82607; 82746; 83540; 83550; 83735; 84100; 84134; 85007; 85025; 85060; 87040; 87081; 87086; 94003; 94150; 94760; J2250; J2405; J2710; J2765